=== PATIENT | female | born 1935 | race Caucasian/White ===

== ENCOUNTER 2016-04-16 01:44 | Inpatient (IN) | payer MEDICARE, OTHER ==
[~2016-04-16] VITALS: Ht 162.6 cm; Wt 55.0 kg
[2016-04-16] VITALS (12 sets, daily range): BP systolic 138–186; BP diastolic 63–88; PULSE 70–108; RESP 15–22; TEMP 98.2–101.6; O2SAT 93–98
[~2016-04-16 01:44] MED LIST: ALBU25IPRN INH; BISA10R PR; CYAN1000P IM; DILA2TAB4 PO; DOCU100T9 PO; ERGO50000 PO; GABA300 PO; HALO5 PO; HALO5P IM; KCL10 PO; LEVA250T PO; LORA-474 PO; MAGN400 PO; METO50CR PO; METR-1 PO/NG; NOVOLOGSS SQ; PHEN100S PO; PROC2.5C PR; RISP.5 PO; TRAZ50TA4 PO
[2016-04-16] MEDS ORDERED: SODIUM CHLOR 0.9% 1000 ML INJ 1,000 ML IV ONE (02:00)
--- NOTE | 2016-04-16 02:23 | PD ---
HPI Chief Complaint: GI Complaint Time Seen by Provider: 01:58 Travel History International Travel<30 days: No Contact w/Intl Traveler<30days: No Traveled to known affect area: No History of Present Illness HPI 80-year-old woman who presents to the emergency department referred in from [facility] for altered mental status, possible UTI , coffee ground emesis. Patient is unable to provide any additional history. History Past Medical History Narrative Medical Hypertension Seizures Diabetes Bipolar/schizoaffective disorder/anxiety Anemia ? Acute embolism and thrombosis 12/2014 Menopausal: Yes : 2 Para: 1 Social History Alcohol Use: No Tobacco Use: No Allergies-Medications (Allergen,Severity, Reaction): Coded Allergies: Glipizide (Verified Allergy, Severe, VOMITING, 04/16/16) Lansoprazole (Verified Allergy, Severe, VOMITING, 04/16/16) Percocet (Verified Allergy, Severe, VOMITING, 04/16/16) PERCOCET Pravastatin (Verified Allergy, Severe, VOMITING, 04/16/16) PT HAS THIS LISTED, BUT WAS PRESCRIBED BY HER DRDavid IN OCTOBER -NOT AWARE OF ANY PROBLEM NOW WITH THIS MED Propoxyphene (Verified Allergy, Severe, VOMITING, 04/16/16) DARVOCET Abilify (Verified Adverse Reaction, Severe, 04/16/16) Reported Meds & Prescriptions Reported Meds & Active Scripts Active Reported Tylenol (Acetaminophen) 325 Mg Tab 650 Mg PO Q6H PRN Trazodone HCl 100 Mg Tab 1 Cap PO HS Tessalon Perles (Benzonatate) 100 Mg Cap 100 Mg PO TID PRN Risperidone 0.25 Mg Tab 0.75 Mg PO BID Poly-Iron 150 (Polysaccharide Iron Complex) 150 Mg Cap 150 Mg PO DAILY Phenytoin Liq (Phenytoin) 125 Mg/5 Ml Erika 300 Mg PO HS Phenytoin Liq (Phenytoin) 125 Mg/5 Ml Erika 150 Mg PO Q12HR Novolin R Inj (Insulin Human Regular) 1,000 Unit/10 Ml Vial 2-18 Units SQ ACHS Max dose at bedtime:( )units; sugars less than 70,(0) units; sugars 150-199,(2)unit; sugars 200-249,(4)units; sugars 250-299,(7) units; sugars 300-349,(10)units; sugars greater than 349,(12)units Mineral Oil Enema (Mineral Oil) 1 Enem 1 Applic RECTAL PRN Milk of Magnesia Liq (Magnesium Hydroxide) 400 Mg/5 Ml Susp 15 Ml PO DAILY PRN Metoprolol Tartrate 50 Mg Tab 50 Mg PO DAILY Lorazepam 1 Mg Tab 1 Mg PO Q12HR PRN Lisinopril 2.5 Mg Tab 2.5 Mg PO DAILY Lexapro (Escitalopram Oxalate) 20 Mg Tab 20 Mg PO DAILY Lantus Inj (Insulin Glargine) 100 Unit/Ml Inj 5 Units SQ BID Lactulose Liq (Lactulose) 10 Gm/15 Ml Soln 30 Ml PO DAILY PRN Klonopin (Clonazepam) 1 Mg Tab 1 Mg PO BID Klonopin (Clonazepam) 0.5 Mg Tab 0.5 Mg PO DAILY Guaifenesin 400 Mg Tab 1,200 Mg PO BID Gabapentin 300 Mg Cap 300 Mg PO BID Fentanyl Patch 72 HR (Fentanyl) 25 Mcg/Hr Patch 25 Mcg T-DERMAL Q72H Dulcolax Supp (Bisacodyl) 10 Mg Supp 10 Mg RECTAL DAILY PRN Dilaudid (Hydromorphone HCl) 4 Mg Tab 4 Mg PO Q4H PRN Depakote Sprinkles (Divalproex Sodium) 125 mg Cap 250 Mg PO DAILY Colace (Docusate Sodium) 100 Mg Cap 100 Mg PO BID Benztropine (Benztropine Mesylate) 1 Mg Tab 1 Mg PO BID PRN Baclofen 10 Mg Tab 10 Mg PO BID PRN Albuterol Neb (Albuterol Sulfate) 2.5 Mg/3 Ml Neb 2.5 Mg NEB Q4HR NEB PRN Review of Systems Except as stated in HPI: all other systems reviewed are Neg Physical Exam Narrative GENERAL: 80-year-old woman, pale and ill-appearing SKIN: Warm and dry. HEAD: Atraumatic. Normocephalic. CARDIOVASCULAR: Regular rate and rhythm. No murmur appreciated. RESPIRATORY: No accessory muscle use. Clear to auscultation. Breath sounds equal bilaterally. GASTROINTESTINAL: Abdomen flat and soft. Some grimace to deep palpation. RECTAL: Firm stool in the rectal vault, light brown, guaiac-negative. MUSCULOSKELETAL: No obvious deformities. Decreased muscle bulk. No edema. NEUROLOGICAL: Awake, eyes open but decreased alertness. Not interactive. Will answer some questions such as her name. Will not really follow any commands. PSYCHIATRIC: Unable to assess. Data Data Last Documented VS Vital Signs Date Time Temp Pulse Resp B/P Pulse Ox O2 Delivery O2 Flow Rate FiO2 04/16/16 01:50 101.6 76 20 138/67 94 Orders Chest, Single Ap (04/16/16 ) Complete Blood Count With Diff (04/16/16 02:00) Comprehensive Metabolic Panel (04/16/16 02:00) Prothrombin Time / Inr (Pt) (04/16/16 02:00) Act Partial Throm Time (Ptt) (04/16/16 02:00) Lactic Acid Sepsis Protocol (04/16/16 02:00) Magnesium (Mg) (04/16/16 02:00) Phosphorus (Po4) (04/16/16 02:00) Lipase (04/16/16 02:00) Troponin I (04/16/16 02:00) Urinalysis - C+S If Indicated (04/16/16 02:00) Influenzae A/B Antigen (04/16/16 02:00) Blood Culture (04/16/16 02:00) Blood Glucose (04/16/16 02:00) Ecg Monitoring (04/16/16 02:00) Iv Access Insert/Monitor (04/16/16 02:00) Oximetry (04/16/16 02:00) Oxygen Administration (04/16/16 02:00) Ct Abd/Pel W Iv Contrast(Rout) (04/16/16 02:00) Sodium Chlor 0.9% 1000 Ml Inj (Ns 1000 M (04/16/16 02:00) Urinary Catheter Insert/Apply (04/16/16 02:21) Phenytoin (Dilantin) (04/16/16 02:10) Valproic Acid (Depakene) (04/16/16 02:10) Pantoprazole Inj (Protonix Inj) (04/16/16 03:15) Vancomycin Inj (Vancomycin Inj) (04/16/16 03:15) Piperacil-Tazo 3.375 Gm Premix (Zosyn 3. (04/16/16 03:15) Iohexol 350 Inj (Omnipaque 350 Inj) (04/16/16 03:16) Labs Laboratory Tests Test 04/16/16 04/16/16 02:10 02:30 White Blood Count 13.7 TH/MM3 Red Blood Count 3.30 MIL/MM3 Hemoglobin 10.2 GM/DL Hematocrit 30.1 % Mean Corpuscular Volume 91.1 FL Mean Corpuscular Hemoglobin 31.0 PG Mean Corpuscular Hemoglobin 34.0 % Concent Red Cell Distribution Width 12.7 % Platelet Count 256 TH/MM3 Mean Platelet Volume 8.2 FL Neutrophils (%) (Auto) 91.0 % Lymphocytes (%) (Auto) 3.7 % Monocytes (%) (Auto) 4.7 % Eosinophils (%) (Auto) 0.0 % Basophils (%) (Auto) 0.6 % Neutrophils # (Auto) 12.5 TH/MM3 Lymphocytes # (Auto) 0.5 TH/MM3 Monocytes # (Auto) 0.6 TH/MM3 Eosinophils # (Auto) 0.0 TH/MM3 Basophils # (Auto) 0.1 TH/MM3 CBC Comment DIFF FINAL Differential Comment Prothrombin Time 10.7 SEC Prothromb Time International 1.0 RATIO Ratio Activated Partial 26.6 SEC Thromboplast Time Sodium Level 136 MEQ/L Potassium Level 4.7 MEQ/L Chloride Level 99 MEQ/L Carbon Dioxide Level 27.9 MEQ/L Anion Gap 9 MEQ/L Blood Urea Nitrogen 37 MG/DL Creatinine 0.80 MG/DL Estimat Glomerular Filtration 69 ML/MIN Rate Random Glucose 81 MG/DL Lactic Acid Level 0.9 mmol/L Calcium Level 8.4 MG/DL Phosphorus Level 2.8 MG/DL Magnesium Level 2.1 MG/DL Total Bilirubin 0.3 MG/DL Aspartate Amino Transf 21 U/L (AST/SGOT) Alanine Aminotransferase 13 U/L (ALT/SGPT) Alkaline Phosphatase 95 U/L Troponin I LESS THAN 0.02 NG/ML Total Protein 6.4 GM/DL Albumin 2.7 GM/DL Lipase 30 U/L Phenytoin (Dilantin) Level 4.9 MCG/ML Valproic Acid (Depakene) Level 14 MCG/ML Urine Color YELLOW Urine Turbidity CLEAR Urine pH 6.5 Urine Specific [place] 1.021 Urine Protein NEG mg/dL Urine Glucose (UA) NEG mg/dL Urine Ketones NEG mg/dL Urine Occult Blood NEG Urine Nitrite NEG Urine Bilirubin NEG Urine Urobilinogen LESS THAN 2.0 MG/DL Urine Leukocyte Esterase NEG Urine RBC 1 /hpf Urine Squamous Epithelial <1 /hpf Cells Urine Hyaline Casts 1 /lpf Urine Mucus FEW /lpf Microscopic Urinalysis Comment CATH-CULT NOT IND MDM Medical Decision Making Medical Screen Exam Complete: Yes Emergency Medical Condition: Yes Interpretation(s) LABS: CBC remarkable for mild leukocytosis, mild anemia. CMP is unremarkable Troponin negative Lipase normal Lactate negative Coags unremarkable UA unremarkable Phenytoin 4.[address] abdomen and pelvis: Tidal hernia. Fecal impaction. No perceptible mass lesion. Small left pleural effusion. Chest x-ray: Patchy mild airspace disease on the left. Differential Diagnosis Obstruction, hematemesis, infection, adverse medication effect, other Narrative Course Medical decision making INITIAL: 80-year-old woman, presents emergency Department with altered mental status, delirium, dark black emesis, and fever. She appears ill, likely septic. Dark emesis but guaiac negative stools. Possible bleed. Does not appear to be on any blood thinners. She has some grimace with deep palpation in her belly, with fever and vomiting and no other source, concern for abdominal sepsis. Will check chest x-ray, CT abdomen and pelvis, labs, IV fluids, reassess. FINAL: Patient with evidence of hematemesis. She also fecal impaction. Unclear if this is a source or vomiting or not. She was disimpacted at the bedside. She was started on a PPI. She was given empiric coverage for sepsis given her fever, tachypnea, leukocytosis. Diagnosis Primary Impression: Sepsis Qualified Code: A41.9 - Sepsis, due to unspecified organism Additional Impressions: Fecal impaction GI bleed Qualified Code: K92.2 - Gastrointestinal hemorrhage, unspecified gastrointestinal hemorrhage type Admitting Information Admitting Physician Requests: Admit Zeeshan Yao MD Apr 16, 2016 02:23
--- NOTE | 2016-04-16 02:30 | RADRPT ---
EXAM DATE/TIME: 04/16/2016 00:13 [facility] COMPARISON: CHEST SINGLE AP, November 20, 2014, 6:10. INDICATIONS : Pt having coffee ground emesis x 1 day. MEDICAL HISTORY : Diabetes mellitus type II. Dementia SURGICAL HISTORY : None. ENCOUNTER: Initial ACUITY: 1 day PAIN SCORE: Non-responsive. LOCATION: Bilateral chest FINDINGS: Patchy air space opacities are seen in the left mid and lower lung. Right lung appears reasonably moises ar. No large effusion demonstrated. No pneumothorax. Heart size stable, upper limits of normal. CONCLUSION: Patchy mild airspace disease on the left. Mazin Arroyo MD on April 16, 2016 at 2:28 Board Certified Radiologist. This report was verified electronically.
[2016-04-16 02:37] LABS: AUTOMATED NEUTROPHIL # 12.5 TH/MM3 (1.8-7.7); BASOPHIL # 0.1 TH/MM3 (0-0.2); BASOPHIL % 0.6 % (0.0-2.0); HEMATOCRIT 30.1 % (35.0-46.0); HEMO FLAGS DIFF FINAL; LYMPH % 3.7 % (9.0-44.0); LYMPHOCYTE # 0.5 TH/MM3 (1.0-4.8); MEAN CELL VOLUME 91.1 FL (80.0-100.0); MONO % 4.7 % (0.0-8.0); PLATELET COUNT 256 TH/MM3 (150-450); RED CELL DISTRIBUTION WIDTH 12.7 % (11.6-17.2); WHITE BLOOD COUNT 13.7 TH/MM3 (4.0-11.0)
[2016-04-16 02:47] LABS: APTT (PATIENT) 26.6 SEC (24.3-30.1); PROTHROMBIN TIME - PATIENT 10.7 SEC (9.8-11.6)
[2016-04-16 02:49] LABS: BLOOD, URINE NEG (NEG); GLUCOSE,URINE NEG (NEG); HYALINE CAST, URINE 1 /lpf (RARE); KETONE, URINE NEG (NEG); MUCUS URINE FEW /lpf (OCC); NITRITE,URINE NEG (NEG); PH, URINE 6.5 (5.0-8.5); SQUAMOUS EPITHELIAL CELL URINE <1 /hpf (0-5); URINE COLOR YELLOW (YELLW/STRAW)
[2016-04-16 02:51] LABS: COMMENT (UR) CATH-CULT NOT IND; CULTURE IF INDICATED CATH CULTURE NOT IND
[2016-04-16 03:00] LABS: ALT (GPT) 13 U/L (10-53); ANION GAP 9 MEQ/L (5-15); AST (GOT) 21 U/L (15-37); BICARBONATE 27.9 MEQ/L (21.0-32.0); BLOOD UREA NITROGEN 37 MG/DL (7-18); CHLORIDE 99 MEQ/L (98-107); GLOMERULAR FILTRATION RATE 69 ML/MIN (>89); MAGNESIUM 2.1 MG/DL (1.5-2.5); POTASSIUM 4.7 MEQ/L (3.5-5.1); SODIUM (NA) 136 MEQ/L (136-145)
[2016-04-16 03:02] LABS: ALKALINE PHOSPHATASE 95 U/L (45-117); TOTAL BILIRUBIN ADULT 0.3 MG/DL (0.2-1.0)
[2016-04-16] MEDS ORDERED: BENZ100 PO (03:09)
[2016-04-16] MEDS ORDERED: ALBU0.08 NEB (03:09)
[2016-04-16] MEDS ORDERED: TYLE325T PO (03:09)
[2016-04-16] MEDS ORDERED: DULC10SU3 RECTAL (03:09)
[2016-04-16] MEDS ORDERED: GABA300C5 PO (03:09)
[2016-04-16] MEDS ORDERED: DILA4TAB2 PO (03:09)
[2016-04-16] MEDS ORDERED: CLON1 PO (03:09)
[2016-04-16] MEDS ORDERED: LEXA20TA PO (03:09)
[2016-04-16] MEDS ORDERED: NU-IRON PO (03:09)
[2016-04-16] MEDS ORDERED: DIVA125C PO (03:09)
[2016-04-16] MEDS ORDERED: LORA1TAB12 PO (03:09)
[2016-04-16] MEDS ORDERED: TRAZ100T5 PO (03:09)
[2016-04-16] MEDS ORDERED: NOVORP2 SQ (03:09)
[2016-04-16] MEDS ORDERED: MILKSUS PO (03:09)
[2016-04-16] MEDS ORDERED: METO50TA PO (03:09)
[2016-04-16] MEDS ORDERED: BACL10TA PO (03:09)
[2016-04-16] MEDS ORDERED: MINE1ENE RECTAL (03:09)
[2016-04-16] MEDS ORDERED: LANTUS2P SQ (03:09)
[2016-04-16] MEDS ORDERED: COLA100C3 PO (03:09)
[2016-04-16] MEDS ORDERED: GUAI400T8 PO (03:09)
[2016-04-16] MEDS ORDERED: FENT25DI T-DERMAL (03:09)
[2016-04-16] MEDS ORDERED: LISI2.5T3 PO (03:09)
[2016-04-16] MEDS ORDERED: CLON.5 PO (03:09)
[2016-04-16] MEDS ORDERED: LACT10SO PO (03:09)
[2016-04-16] MEDS ORDERED: BENZ1TAB PO (03:09)
[2016-04-16] MEDS ORDERED: RISP0.252 PO (03:09)
[2016-04-16] MEDS ORDERED: PHEN125S PO ×2 (03:09)
[2016-04-16] MEDS ORDERED: VANCOMYCIN INJ 1,000 MG in SODIUM CHLOR 0.9% 250 ML INJ 250 ML IV ONE (03:15)
[2016-04-16] MEDS ORDERED: PIPERACIL-TAZO 3.375 GM PREMIX 50 ML IV ONE (03:15)
[2016-04-16] MEDS ORDERED: PANTOPRAZOLE SODIUM 40 MG VIAL IV PUSH ONE (03:15)
[2016-04-16] MEDS ORDERED: IOHEXOL 350 MG/ML 10 ML VIAL (for RAD DIAG) IV ONE (03:16)
--- NOTE | 2016-04-16 03:43 | RADRPT ---
EXAM DATE/TIME: 04/16/2016 03:14 [facility] COMPARISON: CT ABDOMEN & PELVIS W CONTRAST, January 19, 2013, 20:34. INDICATIONS : Abdominal pain with coffee ground emesis. IV CONTRAST: 90 cc Omnipaque 350 (iohexol) IV ORAL CONTRAST: No oral contrast ingested. RADIATION DOSE: 5.17 CTDIvol (mGy) MEDICAL HISTORY : Hypercholesterolemia. Hypertension. Hernia, hiatal.Diabetes. SURGICAL HISTORY : Hysterectomy. ENCOUNTER: Initial ACUITY: 1 day PAIN SCALE: Non-responsive LOCATION: abdomen TECHNIQUE: Volumetric scanning of the abdomen and pelvis was performed. Using automated exposure control and ad justment of the mA and/or kV according to patient size, radiation dose was kept as low as reasonably achievable to obtain optimal diagnostic quality images. FINDINGS: There is a large hiatal hernia. Extremely large amount of stool seen in a distended rectum. The rectum measures up to 11.6 cm in diam eter. No mass or lymphadenopathy demonstrated. No acute abnormality seen of the liver, spleen, pancreas, ad renal glands or kidneys. There is chronic fatty atrophy of the pancreas. Scattered bilateral renal cy sts are again noted up to 2 cm in size. Tortuous and atherosclerotic abdominal aorta and iliac arteries. No aneurysm. Tiny pleural effusion seen of the visualized left lung base. CONCLUSION: 1. Large hiatal hernia. 2. Fecal impaction in the rectum. 3. No perceptible mass lesion. 4. Small left pleural effusion. 5. Chronic, benign-appearing bilateral renal cysts. Mazin Arroyo MD on April 16, 2016 at 3:37 Board Certified Radiologist. This report was verified electronically.
[2016-04-16] MEDS ORDERED: MAGNESIUM CITRATE SOLN 300 ML BTL PO ONE (04:15)
[2016-04-16] MEDS ORDERED: METHYLNALTREXONE BROMIDE 12 MG/0.6 ML VIAL SQ ONE (04:15)
[2016-04-16] MEDS ORDERED: GLYCERIN ADULT 2 GM SUPP RECTAL ONE (04:15)
[2016-04-16] MEDS ORDERED: LACTULOSE SYRUP 20 GM/30 ML CUP PO PRN (05:30)
[2016-04-16] MEDS ORDERED: BISACODYL 10 MG SUPP RECTAL PRN (05:30)
[2016-04-16] MEDS ORDERED: GLUCAGON 1 MG/ML VIAL OTHER PRN (05:30)
[2016-04-16] MEDS ORDERED: BENZTROPINE MESYLATE 1 MG TAB PO PRN (05:30)
[2016-04-16] MEDS ORDERED: PIPERACIL-TAZO 3.375 GM PREMIX 50 ML IV SCH (05:30)
[2016-04-16] MEDS ORDERED: SODIUM CHLORIDE 0.9% FLUSH 5 ML FLUSH FLUSH PRN (05:30)
[2016-04-16] MEDS ORDERED: HYDROmorphone HCL 4 MG TAB PO PRN (05:30)
[2016-04-16] MEDS ORDERED: DEXTROSE 50% IN WATER 50 ML VIAL(D50) IV PUSH PRN (05:30)
[2016-04-16] MEDS ORDERED: ONDANSETRON HCL 4 MG/2 ML VIAL IVP PRN (05:30)
[2016-04-16] MEDS ORDERED: Vancomycin Consult Pharmacy 1 EA XX SCH (05:30)
[2016-04-16] MEDS ORDERED: BENZONATATE 100 MG CAP PO PRN (05:30)
[2016-04-16] MEDS ORDERED: MAGNESIUM HYDROXIDE SUSP 30 ML CUP PO PRN ×2 (05:30)
[2016-04-16] MEDS ORDERED: RESP: ALBUTEROL 2.5 MG/3 ML NEB (PRN) NEB (05:30)
[2016-04-16] MEDS ORDERED: BACLOFEN 10 MG TAB PO PRN (05:30)
[2016-04-16] MEDS ORDERED: BISACODYL 10 MG SUPP PR PRN (05:30)
[2016-04-16] MEDS ORDERED: ACETAMINOPHEN 325 MG TAB PO PRN (05:30)
[2016-04-16] MEDS ORDERED: NALOXONE HCL 0.4 MG/ML AMP IV PRN (05:30)
[2016-04-16] MEDS: PHENYTOIN SUSP 100 MG/4 ML CUP PO SCH ×3 (06:00→22:19)
[2016-04-16] MEDS: fentaNYL 25 MCG/HR PATCH T-DERMAL SCH (06:33)
[2016-04-16] MEDS: SODIUM CHLOR 0.9% 1000 ML INJ 1,000 ML IV SCH ×2 (06:35→10:39)
[2016-04-16] MEDS: INSULIN ASPART SUPPLEMENTAL SCALE SQ SCH ×4 (07:00→22:18)
[2016-04-16] MEDS: PIPERACIL-TAZO 3.375 GM PREMIX 50 ML IV SCH ×3 (08:58→22:32)
[2016-04-16] MEDS: SODIUM CHLORIDE 0.9% FLUSH 5 ML FLUSH FLUSH SCH ×2 (09:00→22:20)
[2016-04-16] MEDS ORDERED: clonazePAM 0.5 MG TAB PO SCH (09:00)
[2016-04-16] MEDS ORDERED: METOPROLOL TARTRATE 50 MG TAB PO SCH (09:00)
[2016-04-16] MEDS ORDERED: PHENYTOIN SUSP 100 MG/4 ML CUP PO SCH (09:00)
[2016-04-16] MEDS: clonazePAM 1 MG TAB PO SCH ×2 (09:02→22:19)
[2016-04-16] MEDS: LISINOPRIL 5 MG TAB PO SCH (09:05)
[2016-04-16] MEDS: DOCUSATE SODIUM 100 MG CAP PO SCH ×2 (09:07→22:18)
--- NOTE | 2016-04-16 10:05 | MH ---
DATE OF ADMISSION 04/16/2016 DATE OF [address] Alex Franz PRESENTING COMPLAINT The patient was brought to the ER from [facility] because of altered mental status for coffee-ground emesis. HISTORY OF PRESENT ILLNESS The patient is an 80-year female with a significant past medical history of dementia. Unable to get any good information from the patient. The patient is alert and oriented times one at present. The patient was brought from [facility] for altered mental status with coffee-ground emesis. As per old records, the patient has dementia and se has a psychiatric history as well. At present, the patient has no complaint. She denies any headache. She has only nausea. Denies any vomiting. On questioning, she says that she has slight abdominal discomfort. There are no other associated symptoms. There are no other symptoms. Discussed with RN at the bedside in the ER as well. The patient has been disimpacted in the ER. PAST MEDICAL HISTORY Significant for: 1. Anxiety 2. Bipolar disorder 3. Arthritis 4. Gastroesophageal reflux disease 5. Hyperlipidemia 6. Depression 7. Diabetes 8. Hypertension 9. Seizure 10. History of anemia 11. Dementia 12. GERD 13. Schizoaffective disorder. PAST SURGICAL HISTORY 1. As per records history of appendectomy. 2. Eyes surgery 3. Hysterectomy 4. Back surgery 5. Tonsillectomy 6. Also has an intravenous shunt stent 7. Back and heart surgery MEDICATIONS Reviewed, please see MAR. ALLERGIES The patient has allergy to ABILIFY, GLIPIZIDE, LANSOPRAZOLE, PERCOCET AND PROPOXYPHENE. FAMILY HISTORY As per record, heart disease. REVIEW OF SYSTEMS As described above, essentially negative for 10 systems. Discussed with the patient, the patient is demented as well and with altered mental status. SOCIAL HISTORY The patient lives in a nursing/rehab facility. She does not smoke or drink. Does not do any substance abuse. PHYSICAL EXAMINATION The patient is alert and oriented x1, pleasant, following commands, lying on bed without any apparent distress at present. VITAL SIGNS: Show the patient is afebrile, pulse is 78, on monitor respiratory is 16, blood pressure 157/67, pulse 97, pulse ox of 97% on room air. HEENT: Head is normocephalic. Eyes, negative conjunctival icterus. Mouth slightly dry tongue and mouth. NECK: Supple. No increased JVD. Central trachea. RESPIRATORY: Chest is clear to auscultation. CARDIOVASCULAR: S1 and S2 audible. Unable to hear any S3 gallop. GI: Abdomen is soft, very minimally tender in the lower abdomen. No rebound, no guarding noted. No organomegaly. Positive bowel sounds. The patient's stomach is not distended. SKIN: Warm and dry. EXTREMITIES: No cyanosis or pedal edema appreciated. GAMING DIRECTOR: Alert, oriented to x1, normal facial features, normal speech. There is a decreased muscle mass. PSYCH: Appropriate mood and affect at present. INVESTIGATIONS Chest x-ray Shows the patient has patchy mild airspace disease on the left. Abdominal pelvic ultrasound shows slight hiatal hernia. Fecal impaction in the rectum. No perceptible mass lesion. Small left pleural effusion. Chronic benign-appearing bilateral renal cysts. Labs were done which shows WBC 13.7, hemoglobin 10.7, hematocrit 30.1, platelet count is 256. BUN 37, GFR 69, troponin less than 0.02, albumin 2.7, lipase 30, lactic acid 0.9, PT-INR and PTT within normal limits. Phenytoin level 4.9, valproic acid 14. The patient's urine shows urine mucus few, culture not indicated. Negative influenza type A and B. Negative antigen. Blood culture done. ASSESSMENT 1. High-grade fever on admission with leukocytosis likely sepsis, likely early sepsis 2. Obstipation 3. Hematemesis in nursing facility. 4. Altered mental status metabolic encephalopathy/dementia. 5. Schizoaffective disorder with depression and anxiety. 6. Hypertension 7. Diabetes 8. History of anemia. 9. CAD history with a stent and heart surgery history in the past. 10. History of back surgery. 11. As per records history of DVT. PLAN 1. We will admit the patient to the floor. 2. IV hydration. 3. Monitor H&H. 4. Empiric antibiotics. 5. Follow cultures. 6. Disimpaction done in the ER, advised RN to do more disimpaction if needed. 7. Plan for GI consult. 8. p.r.n. blood transfusion. 9. Monitor sugar with sliding scale insulin coverage. 10. Monitor blood pressure. 11. Labs for tomorrow. 12. Continue some of home medication as indicated. 13. Keep her on a clear liquids. 14. Condition discussed with RN. Tried to explain to the patient. Condition is guarded, prognosis guarded. Further recommendation to follow as per patient progress. alf records show the patient is DNR. We will keep her DNR. Alex Franz MD JP/ASIF /9:03 AM /9:26 AM PT SEEN AND EXAMINED ON DAY ADMISSION ABOVE FACE TO FACE TIME SPENT WITH PT CHART WAS REVIEWED. INCLUDING LABS MEDS AND RAD DATA NOTES WERE REVEIWED PLAN OF CARE WAS DW FURNITURE MOVER ABOVE COND WAS GUARDED MTDD
[2016-04-16] MEDS: ESCITALOPRAM OXALATE 20 MG TAB PO SCH (10:23)
[2016-04-16] MEDS: risperiDONE 0.25 MG TAB PO SCH ×2 (10:24→22:32)
[2016-04-16] MEDS: DIVALPROEX SODIUM SPRINKLES 125 MG CAP PO SCH (10:25)
[2016-04-16] MEDS: guaiFENesin E.R. 600 MG TAB PO SCH ×2 (10:27→22:18)
[2016-04-16] MEDS: POLYSACCHARIDE IRON COMPLEX 150 MG CAP PO SCH (10:27)
--- NOTE | 2016-04-16 10:31 | PD.CONS ---
HPI History of Present Illness This is a 80 year old female with history of dementia, who is not able to provide any history who was sent from [facility] for AMS and reported Coffee ground emesis. Patient is alert and oriented to self. Reports slight abdomen discomfort. No signs of bleeding here in the ED according to nurse, she had a small amount of emesis and that was brown, she was disimpacted and no blood in the stool noted. Hgb seems to be baseline around 10. She has leukocytosis of 13.7. CT showed Large hiatal hernia. 2. Fecal impaction in the rectum. 3. No perceptible mass lesion. (Jarvis Davalos) PFSH Past Medical History Per EMR Anxiety Bipolar disorder Arthritis GERD Depression DM HTN Dementia Past Surgical History Per EMR Appendectomy eye surgery back surgery hysterectomy (Jarvis Davalos) Coded Allergies: Glipizide (Verified Allergy, Severe, VOMITING, 04/16/16) Lansoprazole (Verified Allergy, Severe, VOMITING, 04/16/16) Percocet (Verified Allergy, Severe, VOMITING, 04/16/16) PERCOCET Pravastatin (Verified Allergy, Severe, VOMITING, 04/16/16) PT HAS THIS LISTED, BUT WAS PRESCRIBED BY HER DR. IN OCTOBER -NOT AWARE OF ANY PROBLEM NOW WITH THIS MED Propoxyphene (Verified Allergy, Severe, VOMITING, 04/16/16) DARVOCET Abilify (Verified Adverse Reaction, Severe, 04/16/16) Medications Current Medications Medications (Trade) Dose Ordered Sig/Luna Route Start Time Stop Time Status Last Admin (NS 1000 ml Inj) 1,000 ml @ 100 mls/hr Q10H IV 04/16/16 05:18 04/16/16 06:35 (NS Flush) 2 ml UNSCH PRN FLUSH 04/16/16 05:30 (NS Flush) 2 ml BID FLUSH 04/16/16 09:00 (Tylenol) 650 mg Q4H PRN PO 04/16/16 05:30 (Zofran Inj) 4 mg Q6H PRN IVP 04/16/16 05:30 (Dulcolax Supp) 10 mg DAILY PRN MI 04/16/16 05:30 (Colace) 100 mg Q12H PO 04/16/16 09:00 04/16/16 09:07 Naloxone HCl 0.4 mg 0.4 mg UNSCH PRN IV 04/16/16 05:30 (Vancomycin Consult Pharmacy) 0 ml @ 0 mls/hr UNSCH XX 04/16/16 05:30 (Relistor Inj) 12 mg DAILY SQ 04/16/16 09:00 (Lioresal) 10 mg BID PRN PO 04/16/16 05:30 (Tessalon) 100 mg TID PRN PO 04/16/16 05:30 (Cogentin) 1 mg BID PRN PO 04/16/16 05:30 (Dulcolax Supp) 10 mg DAILY PRN RECTAL 04/16/16 05:30 (KlonoPIN) 1 mg BID PO 04/16/16 09:00 04/16/16 09:02 (Depakote Sprinkles) 250 mg DAILY PO 04/16/16 09:00 (Lexapro) 20 mg DAILY PO 04/16/16 09:00 (Duragesic 25 Mcg Patch.72 Hr) 1 patch Q72H T-DERMAL 04/16/16 06:00 04/16/16 06:33 (Neurontin) 300 mg BID PO 04/16/16 09:00 (Dilaudid) 2 mg Q4H PRN PO 04/16/16 05:30 (Lactulose Liq) 30 ml DAILY PRN PO 04/16/16 05:30 (Prinivil) 2.5 mg DAILY PO 04/16/16 09:00 04/16/16 09:05 (Ativan) 1 mg Q12HR PRN PO 04/16/16 05:30 (Milk Of Magnesia Liq) 15 ml DAILY PRN PO 04/16/16 05:30 (Lopressor) 50 mg DAILY PO 04/16/16 09:00 04/16/16 09:04 (Dilantin Liq) 300 mg HS PO 04/16/16 21:00 (Nu-Iron) 150 mg DAILY PO 04/16/16 09:00 (risperDAL) 0.75 mg BID PO 04/16/16 09:00 (Mucinex Er) 1,200 mg BID PO 04/16/16 09:00 (Desyrel) 100 mg HS PO 04/16/16 21:00 (D50w (Vial) Inj) 25 ml UNSCH PRN IV PUSH 04/16/16 05:30 Glucagon 1 mg 1 mg UNSCH PRN OTHER 04/16/16 05:30 (Zosyn 3.375 Gm Premix) 50 ml @ 100 mls/hr Q6H IV 04/16/16 09:00 04/16/16 08:58 (Dilantin Liq) 150 mg DAILY@06,12 PO 04/16/16 06:00 04/16/16 06:00 Clonazepam 0.5 mg 0.5 mg DAILY@14 PO 04/16/16 14:00 (Vancomycin Inj/ NS 250 ml Inj) 257.5 ml @ 250 mls/hr Q24H IV 04/17/16 04:00 Miscellaneous Information SPECIFIC LAB TO BE SPENCER... ONCE ONCE XX 04/19/16 03:45 04/19/16 03:46 (Protonix Inj) 40 mg BID IV 04/16/16 21:00 Family History Non contributory Social History Not able to obtain (Jarvis Davalos) Review of Systems Gastrointestinal: COMPLAINS OF: Abdominal pain ROS Not able to obtain, patient with dementia, she was sent here for coffee ground emesis, and AMS (Jarvis Davalos) GI Exam Vitals I&O Vital Signs Date Time Temp Pulse Resp B/P Pulse Ox O2 Delivery O2 Flow Rate FiO2 04/16/16 07:00 98.6 78 16 157/67 97 Room Air 04/16/16 04:04 70 16 141/63 96 Room Air 04/16/16 01:50 101.6 76 20 138/67 94 I/O 04/15/16 04/15/16 04/15/16 04/16/16 04/16/16 04/16/16 07:00 15:00 23:00 07:00 15:00 23:00 Output Total 700 ml Balance -700 ml Output Urine Total 700 ml # Voids 0 Imaging Last Impressions Abdomen/Pelvis CT 04/16/16 0200 Signed Impressions: Service Date/Time: Saturday, April 16, 2016 03:14 - CONCLUSION: 1. Large hiatal hernia. 2. Fecal impaction in the rectum. 3. No perceptible mass lesion. 4. Small left pleural effusion. 5. Chronic, benign-appearing bilateral renal cysts. Mazin Arroyo MD Chest X-Ray 04/16/16 0000 Signed Impressions: Service Date/Time: Saturday, April 16, 2016 00:13 - CONCLUSION: Patchy mild airspace disease on the left. Mazin Arroyo MD Laboratory Test 04/16/16 04/16/16 02:10 02:30 White Blood Count 13.7 TH/MM3 Red Blood Count 3.30 MIL/MM3 Hemoglobin 10.2 GM/DL Hematocrit 30.1 % Mean Corpuscular Volume 91.1 FL Mean Corpuscular Hemoglobin 31.0 PG Mean Corpuscular Hemoglobin 34.0 % Concent Red Cell Distribution Width 12.7 % Platelet Count 256 TH/MM3 Mean Platelet Volume 8.2 FL Neutrophils (%) (Auto) 91.0 % Lymphocytes (%) (Auto) 3.7 % Monocytes (%) (Auto) 4.7 % Eosinophils (%) (Auto) 0.0 % Basophils (%) (Auto) 0.6 % Neutrophils # (Auto) 12.5 TH/MM3 Lymphocytes # (Auto) 0.5 TH/MM3 Monocytes # (Auto) 0.6 TH/MM3 Eosinophils # (Auto) 0.0 TH/MM3 Basophils # (Auto) 0.1 TH/MM3 CBC Comment DIFF FINAL Differential Comment Prothrombin Time 10.7 SEC Prothromb Time International 1.0 RATIO Ratio Activated Partial 26.6 SEC Thromboplast Time Sodium Level 136 MEQ/L Potassium Level 4.7 MEQ/L Chloride Level 99 MEQ/L Carbon Dioxide Level 27.9 MEQ/L Anion Gap 9 MEQ/L Blood Urea Nitrogen 37 MG/DL Creatinine 0.80 MG/DL Estimat Glomerular Filtration 69 ML/MIN Rate Random Glucose 81 MG/DL Lactic Acid Level 0.9 mmol/L Calcium Level 8.4 MG/DL Phosphorus Level 2.8 MG/DL Magnesium Level 2.1 MG/DL Total Bilirubin 0.3 MG/DL Aspartate Amino Transf 21 U/L (AST/SGOT) Alanine Aminotransferase 13 U/L (ALT/SGPT) Alkaline Phosphatase 95 U/L Troponin I LESS THAN 0.02 NG/ML Total Protein 6.4 GM/DL Albumin 2.7 GM/DL Lipase 30 U/L Phenytoin (Dilantin) Level 4.9 MCG/ML Valproic Acid (Depakene) Level 14 MCG/ML Urine Color YELLOW Urine Turbidity CLEAR Urine pH 6.5 Urine Specific [place] 1.021 Urine Protein NEG mg/dL Urine Glucose (UA) NEG mg/dL Urine Ketones NEG mg/dL Urine Occult Blood NEG Urine Nitrite NEG Urine Bilirubin NEG Urine Urobilinogen LESS THAN 2.0 MG/DL Urine Leukocyte Esterase NEG Urine RBC 1 /hpf Urine Squamous Epithelial <1 /hpf Cells Urine Hyaline Casts 1 /lpf Urine Mucus FEW /lpf Microscopic Urinalysis Comment CATH-CULT NOT IND Date/Time Procedure Status Source Growth 04/16/16 02:35 Influenza Types A,B Antigen (FRANK) - Final Complete Nasal Washing NEGATIVE FOR FLU A AND B ANTIGEN.... 04/16/16 02:10 Aerobic Blood Culture Received Blood Peripheral Pending 04/16/16 02:10 Anaerobic Blood Culture Received Blood Peripheral Pending Physical Examination HEENT: normocephalic; atraumatic; no jaundice. Throat is clear. NECK: Neck is supple, no JVD, no lymphadenopathy. CHEST: diminished CARDIAC: Regular rate and rhythm with no murmur gallop or rubs. ABDOMEN: Soft, nondistended,diffused tenderness; no hepatosplenomegaly; bowel sounds are present in all four quadrants. EXTREMITIES: No clubbing, cyanosis, or edema. SKIN: ecchymotic BACK ORDER CLERK: alert and oriented to self (Jarvis Davalos) Assessment and Plan Plan - Coffee ground emesis- with history of dementia, who is not able to provide any history who was sent from [facility] for AMS and reported Coffee ground emesis. Patient is alert and oriented to self. Reports slight abdomen discomfort. No signs of bleeding here in the ED according to nurse, she had a small amount of emesis and that was brown, she was disimpacted and no blood in the stool noted. Hgb seems to be baseline around 10. She has leukocytosis of 13.7. CT showed Large hiatal hernia. 2. Fecal impaction in the rectum. 3. No perceptible mass lesion. - Anemia- hgb seems to be base line for patient, no signs of active bleeding so far. - Leukocytosis- WBC 13.7, afebrile, abx - Obstipation- CT as above, s/p disimpaction - Dementia, HTN per attending Plan: - Clear liquids - Cont. PPI - Will monitor symptoms and hh over the weekend, if there is indication, we can perform EGD on Tuesday or sooner for active bleed this was discussed with sister Ksenia Patino ) and she is agreeing with plan - Transfuse as needed - Notify GI with active bleed - Cont. bowel regimen - Patient seen and examined by Dr. Sellers and myself and this note is written on his behalf. (Jarvis Davalos) Physician Comments Seen and examined with [employer], No active bleeding. Elderly demented patient. Monitor labs closely, GI intervention if active bleeding. Iv protonix. Will follow, Thank you (Arnel Sellers MD) Jarvis Davalos Apr 16, 2016 10:31 Arnel Sellers MD Apr 16, 2016 13:32
[2016-04-16] MEDS: METHYLNALTREXONE BROMIDE 12 MG/0.6 ML VIAL SQ SCH (10:33)
[2016-04-16] MEDS: GABAPENTIN 300 MG CAP PO SCH ×2 (10:38→22:18)
[2016-04-16 10:48] LABS: HEMATOCRIT 25.2 % (35.0-46.0); REVIEW FLAG FINAL
[2016-04-16] MEDS: clonazePAM 0.5 MG TAB PO SCH (14:19)
[2016-04-16] MEDS: HYDROmorphone HCL 2 MG TAB PO PRN (20:20)
[2016-04-16 20:42] LABS: REVIEW FLAG FINAL
[2016-04-16] MEDS: traZODone HCL 100 MG TAB PO SCH (22:18)
[2016-04-16] MEDS: METOPROLOL TARTRATE 50 MG TAB PO SCH (22:19)
[2016-04-16] MEDS: PANTOPRAZOLE SODIUM 40 MG VIAL IV SCH (22:19)
[2016-04-17] VITALS (10 sets, daily range): BP systolic 109–128; BP diastolic 40–58; PULSE 54–64; RESP 12–20; TEMP 97.9–99.3; O2SAT 97–100
[2016-04-17] MEDS: HYDROmorphone HCL 2 MG TAB PO PRN (00:38)
[2016-04-17 03:22] LABS: BASOPHIL % 0.6 % (0.0-2.0); EOSINOPHIL % 0.1 % (0.0-4.0); HEMATOCRIT 23.7 % (35.0-46.0); HEMO FLAGS DIFF FINAL; LYMPH % 13.4 % (9.0-44.0); MEAN CORPUSCULAR HEMOGLOBIN 31.7 PG (27.0-34.0); MEAN CORPUSCULAR HGB CONC 34.9 % (32.0-36.0); NEUT % 77.9 % (16.0-70.0); PLATELET COUNT 235 TH/MM3 (150-450); RED CELL DISTRIBUTION WIDTH 12.9 % (11.6-17.2); WHITE BLOOD COUNT 7.7 TH/MM3 (4.0-11.0)
[2016-04-17 03:42] LABS: ANION GAP 6 MEQ/L (5-15); AST (GOT) 16 U/L (15-37); BICARBONATE 26.7 MEQ/L (21.0-32.0); BLOOD UREA NITROGEN 29 MG/DL (7-18); CHLORIDE 104 MEQ/L (98-107); GLOMERULAR FILTRATION RATE 62 ML/MIN (>89); POTASSIUM 4.6 MEQ/L (3.5-5.1); SODIUM (NA) 137 MEQ/L (136-145)
[2016-04-17 03:45] LABS: ALKALINE PHOSPHATASE 74 U/L (45-117); ALT (GPT) 14 U/L (10-53); TOTAL BILIRUBIN ADULT 0.5 MG/DL (0.2-1.0)
[2016-04-17] MEDS: SODIUM CHLOR 0.9% 1000 ML INJ 1,000 ML IV SCH ×3 (04:28→20:00)
[2016-04-17] MEDS: PIPERACIL-TAZO 3.375 GM PREMIX 50 ML IV SCH ×4 (04:28→22:24)
[2016-04-17] MEDS: VANCOMYCIN INJ 750 MG in SODIUM CHLOR 0.9% 250 ML INJ 250 ML IV SCH (05:14)
[2016-04-17] MEDS: PHENYTOIN SUSP 100 MG/4 ML CUP PO SCH ×3 (05:15→19:58)
[2016-04-17] MEDS: INSULIN ASPART SUPPLEMENTAL SCALE SQ SCH ×4 (05:17→22:29)
[2016-04-17] MEDS: METHYLNALTREXONE BROMIDE 12 MG/0.6 ML VIAL SQ SCH (08:40)
[2016-04-17] MEDS: clonazePAM 1 MG TAB PO SCH ×2 (08:42→20:00)
[2016-04-17] MEDS: risperiDONE 0.25 MG TAB PO SCH ×2 (08:42→20:00)
[2016-04-17] MEDS: POLYSACCHARIDE IRON COMPLEX 150 MG CAP PO SCH (08:42)
[2016-04-17] MEDS: METOPROLOL TARTRATE 50 MG TAB PO SCH ×3 (08:42→19:59)
[2016-04-17] MEDS: GABAPENTIN 300 MG CAP PO SCH ×2 (08:43→20:00)
[2016-04-17] MEDS: DOCUSATE SODIUM 100 MG CAP PO SCH ×2 (08:43→20:00)
[2016-04-17] MEDS: ESCITALOPRAM OXALATE 20 MG TAB PO SCH (08:43)
[2016-04-17] MEDS: LISINOPRIL 5 MG TAB PO SCH (08:43)
[2016-04-17] MEDS: guaiFENesin E.R. 600 MG TAB PO SCH ×2 (08:43→20:00)
[2016-04-17] MEDS: DIVALPROEX SODIUM SPRINKLES 125 MG CAP PO SCH (08:45)
[2016-04-17] MEDS: SODIUM CHLORIDE 0.9% FLUSH 5 ML FLUSH FLUSH SCH ×2 (08:45→20:00)
[2016-04-17] MEDS: PANTOPRAZOLE SODIUM 40 MG VIAL IV SCH (08:46)
--- NOTE | 2016-04-17 09:58 | HHI.PR ---
Subjective Remarks Patient is confused alert and oriented 1 Pleasant Offering no complaint Lying on bed without any apparent distress Review of system for 10 point system otherwise unremarkable Objective Objective Results - Vital Signs Date Time Temp Pulse Resp B/P Pulse Ox O2 Delivery O2 Flow Rate FiO2 04/17/16 08:10 54 04/17/16 08:00 98.3 55 14 117/51 100 04/16/16 23:30 98.2 88 22 146/88 94 04/16/16 20:16 81 18 151/83 98 04/16/16 20:00 94 04/16/16 19:41 99.3 04/16/16 19:25 83 20 186/81 98 Room Air 04/16/16 18:23 73 16 165/74 93 Room Air 04/16/16 14:16 108 18 157/77 93 Room Air 04/16/16 11:30 74 15 175/78 97 Room Air I/O 04/16/16 04/16/16 04/16/16 04/17/16 04/17/16 04/17/16 07:00 15:00 23:00 07:00 15:00 23:00 Intake Total 537 ml Output Total 800 ml 400 ml 400 ml Balance -800 ml -400 ml -400 ml 537 ml Intake IV Total 537 ml Output Urine Total 700 ml 400 ml 400 ml Emesis 100 ml # Voids 0 0 0 # Bowel Movements 1 1 Result Diagram: 04/17/1631404/17/16314 Other Results Laboratory Tests Test 04/16/16 04/16/16 04/17/16 10:25 20:36 03:15 Hemoglobin 8.5 9.4 8.3 Hematocrit 25.2 28.0 23.7 White Blood Count 7.7 Red Blood Count 2.60 Mean Corpuscular Volume 91.0 Mean Corpuscular Hemoglobin 31.7 Mean Corpuscular Hemoglobin 34.9 Concent Red Cell Distribution Width 12.9 Platelet Count 235 Mean Platelet Volume 8.0 Neutrophils (%) (Auto) 77.9 Lymphocytes (%) (Auto) 13.4 Monocytes (%) (Auto) 8.0 Eosinophils (%) (Auto) 0.1 Basophils (%) (Auto) 0.6 Neutrophils # (Auto) 6.0 Lymphocytes # (Auto) 1.0 Monocytes # (Auto) 0.6 Eosinophils # (Auto) 0.0 Basophils # (Auto) 0.0 CBC Comment DIFF FINAL Differential Comment Sodium Level 137 Potassium Level 4.6 Chloride Level 104 Carbon Dioxide Level 26.7 Anion Gap 6 Blood Urea Nitrogen 29 Creatinine 0.87 Estimat Glomerular Filtration 62 Rate Random Glucose 132 Calcium Level 8.0 Total Bilirubin 0.5 Aspartate Amino Transf 16 (AST/SGOT) Alanine Aminotransferase 14 (ALT/SGPT) Alkaline Phosphatase 74 Total Protein 5.2 Albumin 2.3 Date/Time Procedure Status Source Growth 04/16/16 02:35 Influenza Types A,B Antigen (FRANK) - Final Complete Nasal Washing NEGATIVE FOR FLU A AND B ANTIGEN.... 04/16/16 02:10 Aerobic Blood Culture Received Blood Peripheral Pending 04/16/16 02:10 Anaerobic Blood Culture Received Blood Peripheral Pending Physical Exam Physical Exam The patient is alert and oriented x1, pleasant, following commands, lying on bed without any apparent distress at present. VITAL SIGNS: Reviewed HEENT: Head is normocephalic. Eyes, negative conjunctival icterus. Mouth slightly dry tongue and mouth. NECK: Supple. No increased JVD. Central trachea. RESPIRATORY: Chest is clear to auscultation. CARDIOVASCULAR: S1 and S2 audible. Unable to hear any S3 gallop. GI: Abdomen is soft, very minimally tender in the lower abdomen. No rebound, no guarding noted. No organomegaly. Positive bowel sounds. The patient's stomach is not distended. SKIN: Warm and dry. EXTREMITIES: No cyanosis or pedal edema appreciated. PULMONOLOGIST/INTENSIVIST: Alert, oriented to x1, normal facial features, normal speech. There is a decreased muscle mass. PSYCH: Appropriate mood and affect at present. A/P Assessment and Plan 1. High-grade fever on admission with leukocytosis secondary to sepsis on admission 2. Obstipation 3. Hematemesis in nursing facility. 4. Altered mental status metabolic encephalopathy/dementia. 5. Schizoaffective disorder with depression and anxiety. 6. Hypertension 7. Diabetes 8. History of anemia. 9. CAD history with a stent and heart surgery history in the past. 10. History of back surgery. 11. As per records history of DVT. PLAN Continue IV hydration. Monitor H&H. Stable Empiric antibiotics. Follow cultures. Disimpaction done in the ER, now moving his stools as per patient RN Appreciate GI consult. p.r.n. blood transfusion. Monitor sugar with sliding scale insulin coverage. Monitor blood pressure. Labs for tomorrow. Continue some of home medication as indicated. Start on regular diet Condition discussed with RN. Tried to explain to the patient. Condition is guarded, prognosis guarded. Further recommendation to follow as per patient progress. DNR. Alex Franz MD Apr 17, 2016 09:58
[2016-04-17 11:58] LABS: HEMATOCRIT 23.1 % (35.0-46.0); REVIEW FLAG FINAL
[2016-04-17] MEDS: clonazePAM 0.5 MG TAB PO SCH (15:01)
--- NOTE | 2016-04-17 16:01 | HHI.GIFU ---
Subjective Remarks Resting in bed. Lethargic. Does not appear to have any tenderness/pain. Nurse reports that she has not had any obvious active bleeding with vomiting or blood from below, although she is getting transfused for drop in hgb. (July Rodríguez) Objective Vitals I&O Vital Signs Date Time Temp Pulse Resp B/P Pulse Ox O2 Delivery O2 Flow Rate FiO2 04/17/16 15:12 98.0 55 19 109/40 98 04/17/16 14:56 98.5 55 20 110/52 98 04/17/16 12:00 97.9 60 12 110/50 99 04/17/16 08:10 54 04/17/16 08:00 98.3 55 14 117/51 100 04/16/16 23:30 98.2 88 22 146/88 94 04/16/16 20:16 81 18 151/83 98 04/16/16 20:00 94 04/16/16 19:41 99.3 04/16/16 19:25 83 20 186/81 98 Room Air 04/16/16 18:23 73 16 165/74 93 Room Air I/O 04/16/16 04/16/16 04/16/16 04/17/16 04/17/16 04/17/16 07:00 15:00 23:00 07:00 15:00 23:00 Intake Total 537 ml Output Total 800 ml 400 ml 400 ml Balance -800 ml -400 ml -400 ml 537 ml Intake IV Total 537 ml Output Urine Total 700 ml 400 ml 400 ml Emesis 100 ml # Voids 0 0 0 # Bowel Movements 1 1 Laboratory Laboratory Tests Test 04/16/16 04/17/16 04/17/16 04/17/16 20:36 03:15 10:25 13:00 Hemoglobin 9.4 8.3 7.8 Hematocrit 28.0 23.7 23.1 White Blood Count 7.7 Red Blood Count 2.60 Mean Corpuscular Volume 91.0 Mean Corpuscular Hemoglobin 31.7 Mean Corpuscular Hemoglobin 34.9 Concent Red Cell Distribution Width 12.9 Platelet Count 235 Mean Platelet Volume 8.0 Neutrophils (%) (Auto) 77.9 Lymphocytes (%) (Auto) 13.4 Monocytes (%) (Auto) 8.0 Eosinophils (%) (Auto) 0.1 Basophils (%) (Auto) 0.6 Neutrophils # (Auto) 6.0 Lymphocytes # (Auto) 1.0 Monocytes # (Auto) 0.6 Eosinophils # (Auto) 0.0 Basophils # (Auto) 0.0 CBC Comment DIFF FINAL Differential Comment Sodium Level 137 Potassium Level 4.6 Chloride Level 104 Carbon Dioxide Level 26.7 Anion Gap 6 Blood Urea Nitrogen 29 Creatinine 0.87 Estimat Glomerular Filtration 62 Rate Random Glucose 132 Calcium Level 8.0 Total Bilirubin 0.5 Aspartate Amino Transf 16 (AST/SGOT) Alanine Aminotransferase 14 (ALT/SGPT) Alkaline Phosphatase 74 Total Protein 5.2 Albumin 2.3 Blood Type O NEGATIVE Antibody Screen NEGATIVE Crossmatch Leukocyte-Reduced Red Blood Cells Blood Bank Comment Date/Time Procedure Status Source Growth 04/16/16 02:35 Influenza Types A,B Antigen (FRANK) - Final Complete Nasal Washing NEGATIVE FOR FLU A AND B ANTIGEN.... 04/16/16 02:10 Aerobic Blood Culture - Preliminary Resulted Blood Peripheral NO GROWTH IN 1 DAY 04/16/16 02:10 Anaerobic Blood Culture - Preliminary Resulted Blood Peripheral NO GROWTH IN 1 DAY Imaging Last Impressions Abdomen/Pelvis CT 04/16/16 0200 Signed Impressions: Service Date/Time: Saturday, April 16, 2016 03:14 - CONCLUSION: 1. Large hiatal hernia. 2. Fecal impaction in the rectum. 3. No perceptible mass lesion. 4. Small left pleural effusion. 5. Chronic, benign-appearing bilateral renal cysts. Mazin Arroyo MD Chest X-Ray 04/16/16 0000 Signed Impressions: Service Date/Time: Saturday, April 16, 2016 00:13 - CONCLUSION: Patchy mild airspace disease on the left. Mazin Arroyo MD Physical Exam HEENT: Normocephalic; atraumatic; no jaundice. CHEST: CTA CARDIAC: RRR. ABDOMEN: Soft, nondistended, nontender; no hepatosplenomegaly; bowel sounds are present in all four quadrants. EXTREMITIES: No clubbing, cyanosis, or edema. SKIN: Generalized pallor PATIENT CARE REPRESENTATIVE: Lethargic, (July Rodríguez) Assessment and Plan Plan ASSESSMENT: - Coffee ground emesis. Pt with history of dementia and not able to provide any history, sent from [facility] for AMS and reported Coffee ground emesis. Abdomen/Pelvis CT (04/16/16)-----> 1. Large hiatal hernia. 2. Fecal impaction in the rectum. 3. No perceptible mass lesion. 4. Small left pleural effusion. 5. Chronic, benign-appearing bilateral renal cysts. The nurse reports that she has not had any further nausea or vomiting and has not passed any blood from below, but she did have a drop in her hgb from 10.2 to 7.8/23.1 since yesterday. Will obtain consents and make NPO after MN. If HH is stable and no obvious active bleeding, will plan for egd on Tuesday. If active bleeding or further drop in hgb, will schedule for tomorrow. - Anemia, acute blood loss. Drop in her hgb from 10.2 to 7.8/23.1 since yesterday. Getting PRBC. - Obstipation. S/P disimpaction - Dementia, HTN per attending Plan: - Will need EGD tomorrow vs. Tuesday, timing to be determined based on serial H/H 's, clinical status - Obtain consents - Clear liquids - NPO after MN - Cont. PPI - Monitor HH - Transfuse as needed - Notify GI with active bleed - Supportive care - Further recommendations to follow based on results of above - Patient seen and examined by Dr. Sellers and myself and this note is written on his behalf. (July Rodríguez) Physician Comments Seen and examined with Ms. Anne POTTS, drop in H/H, but no bleeding. EGD planned once consents obtained. Contact made with family by KATLYN. (Arnel Sellers MD) July Rodríguez Apr 17, 2016 16:00 Arnel Sellers MD Apr 17, 2016 16:23
[2016-04-17] MEDS ORDERED: FUROSEMIDE 20 MG/2 ML VIAL IV PUSH ONE (17:30)
[2016-04-17] MEDS: traZODone HCL 100 MG TAB PO SCH (20:00)
[2016-04-17 22:19] LABS: HEMATOCRIT 29.5 % (35.0-46.0); REVIEW FLAG FINAL
[2016-04-18] VITALS: BP 128/57; PULSE 56; RESP 16; TEMP 98; O2SAT 97
[2016-04-18] MEDS: VANCOMYCIN INJ 750 MG in SODIUM CHLOR 0.9% 250 ML INJ 250 ML IV SCH (04:05)
[2016-04-18] MEDS: PIPERACIL-TAZO 3.375 GM PREMIX 50 ML IV SCH ×4 (04:05→20:16)
[2016-04-18 04:48] VITALS: BP 100/47; PULSE 53; RESP 20; TEMP 96.5; O2SAT 94
[2016-04-18] MEDS: SODIUM CHLOR 0.9% 1000 ML INJ 1,000 ML IV SCH ×2 (05:34→12:03)
[2016-04-18] MEDS: INSULIN ASPART SUPPLEMENTAL SCALE SQ SCH ×4 (05:34→20:16)
[2016-04-18] MEDS: PHENYTOIN SUSP 100 MG/4 ML CUP PO SCH ×3 (05:35→20:17)
[2016-04-18 06:56] LABS: HEMATOCRIT 29.9 % (35.0-46.0); MEAN CELL VOLUME 88.5 FL (80.0-100.0); MEAN CORPUSCULAR HEMOGLOBIN 30.7 PG (27.0-34.0); MEAN CORPUSCULAR HGB CONC 34.7 % (32.0-36.0); PLATELET COUNT 212 TH/MM3 (150-450); RED BLOOD COUNT 3.38 MIL/MM3 (4.00-5.30); RED CELL DISTRIBUTION WIDTH 14.2 % (11.6-17.2); REVIEW FLAG FINAL; WHITE BLOOD COUNT 6.2 TH/MM3 (4.0-11.0)
[2016-04-18] MEDS: METHYLNALTREXONE BROMIDE 12 MG/0.6 ML VIAL SQ SCH (07:14)
[2016-04-18 07:36] LABS: BICARBONATE 26.9 MEQ/L (21.0-32.0); POTASSIUM 3.2 MEQ/L (3.5-5.1)
[2016-04-18] MEDS: PANTOPRAZOLE SODIUM 40 MG VIAL IV SCH (07:43)
[2016-04-18] MEDS: SODIUM CHLORIDE 0.9% FLUSH 5 ML FLUSH FLUSH SCH ×2 (07:44→20:17)
[2016-04-18] MEDS: LACTATED RINGER'S 1000 ML IV SCH (07:45)
[2016-04-18 08:00] VITALS: BP 122/62; PULSE 53; RESP 16; TEMP 98.2; O2SAT 95
[2016-04-18] MEDS: METOPROLOL TARTRATE 50 MG TAB PO SCH ×2 (09:00→20:23)
[2016-04-18] MEDS: guaiFENesin E.R. 600 MG TAB PO SCH ×3 (09:00→20:17)
[2016-04-18] MEDS: GABAPENTIN 300 MG CAP PO SCH ×3 (09:00→20:16)
[2016-04-18] MEDS: ESCITALOPRAM OXALATE 20 MG TAB PO SCH ×2 (09:00→12:05)
[2016-04-18] MEDS: DOCUSATE SODIUM 100 MG CAP PO SCH ×2 (09:00→20:16)
[2016-04-18] MEDS: risperiDONE 0.25 MG TAB PO SCH ×3 (09:00→20:16)
[2016-04-18] MEDS: LISINOPRIL 5 MG TAB PO SCH ×2 (09:00→12:04)
[2016-04-18] MEDS: POLYSACCHARIDE IRON COMPLEX 150 MG CAP PO SCH ×2 (09:00→12:04)
[2016-04-18] MEDS: DIVALPROEX SODIUM SPRINKLES 125 MG CAP PO SCH ×2 (09:00→12:04)
[2016-04-18] MEDS: clonazePAM 1 MG TAB PO SCH ×3 (09:00→20:16)
--- NOTE | 2016-04-18 11:51 | HHI.PR ---
Subjective Remarks Patient is confused alert and oriented 1 Pleasant Offering no complaint Lying on bed without any apparent distress Unable to get good review of system Objective Objective Results - Vital Signs Date Time Temp Pulse Resp B/P Pulse Ox O2 Delivery O2 Flow Rate FiO2 04/18/16 08:00 98.2 53 16 122/62 95 04/18/16 04:48 96.5 53 20 100/47 94 04/18/16 00:00 98.0 56 16 128/57 97 04/17/16 21:00 98.0 56 16 128/57 97 04/17/16 20:00 60 04/17/16 20:00 99.3 60 18 117/55 98 04/17/16 17:41 98.8 63 20 119/55 98 04/17/16 17:26 98.9 64 20 123/58 98 04/17/16 16:00 98.0 58 19 109/44 98 04/17/16 15:12 98.0 55 19 109/40 98 04/17/16 14:56 98.5 55 20 110/52 98 04/17/16 12:00 97.9 60 12 110/50 99 I/O 04/17/16 04/17/16 04/17/16 04/18/16 04/18/16 04/18/16 07:00 15:00 23:00 07:00 15:00 23:00 Intake Total 1606 ml 820 ml 812 ml Output Total 350 ml 1200 ml 700 ml Balance 1256 ml -380 ml 112 ml Intake Oral 120 ml 120 ml 120 ml IV Total 1486 ml 200 ml 692 ml Packed Cells 500 ml Output Urine Total 350 ml 1200 ml 700 ml # Bowel Movements 0 0 0 Result Diagram: 04/18/1615 04/18/1615 Other Results Laboratory Tests Test 04/17/16 04/17/16 04/18/16 13:00 21:40 06:15 Blood Type O NEGATIVE Antibody Screen NEGATIVE Crossmatch Leukocyte-Reduced Red Blood Cells Blood Bank Comment Hemoglobin 10.4 10.4 Hematocrit 29.5 29.9 White Blood Count 6.2 Red Blood Count 3.38 Mean Corpuscular Volume 88.5 Mean Corpuscular Hemoglobin 30.7 Mean Corpuscular Hemoglobin 34.7 Concent Red Cell Distribution Width 14.2 Platelet Count 212 Mean Platelet Volume 7.9 Sodium Level 139 Potassium Level 3.2 Chloride Level 104 Carbon Dioxide Level 26.9 Anion Gap 8 Blood Urea Nitrogen 20 Creatinine 0.81 Estimat Glomerular Filtration 68 Rate Random Glucose 97 Calcium Level 7.6 Date/Time Procedure Status Source Growth 04/16/16 02:35 Influenza Types A,B Antigen (FRANK) - Final Complete Nasal Washing NEGATIVE FOR FLU A AND B ANTIGEN.... 04/16/16 02:10 Aerobic Blood Culture - Preliminary Resulted Blood Peripheral NO GROWTH IN 2 DAYS 04/16/16 02:10 Anaerobic Blood Culture - Preliminary Resulted Blood Peripheral NO GROWTH IN 2 DAYS Physical Exam Physical Exam The patient is alert and oriented x1, pleasant, following commands, lying on bed without any apparent distress at present. VITAL SIGNS: Reviewed HEENT: Head is normocephalic. Eyes, negative conjunctival icterus. Mouth slightly dry tongue and mouth. NECK: Supple. No increased JVD. Central trachea. RESPIRATORY: Chest is clear to auscultation. CARDIOVASCULAR: S1 and S2 audible. Unable to hear any S3 gallop. GI: Abdomen is soft, very minimally tender in the lower abdomen. No rebound, no guarding noted. No organomegaly. Positive bowel sounds. The patient's stomach is not distended. SKIN: Warm and dry. EXTREMITIES: No cyanosis or pedal edema appreciated. TELERADIOLOGIST: Alert, oriented to x1, normal facial features, normal speech. There is a decreased muscle mass. PSYCH: Appropriate mood and affect at present. A/P Assessment and Plan 1. High-grade fever on admission with leukocytosis secondary to sepsis on admission 2. Obstipation 3. Hematemesis in nursing facility. 4. Altered mental status metabolic encephalopathy/dementia. 5. Schizoaffective disorder with depression and anxiety. 6. Hypertension 7. Diabetes 8. History of anemia. 9. CAD history with a stent and heart surgery history in the past. 10. History of back surgery. 11. As per records history of DVT. PLAN Continue IV hydration. Labs reviewed Monitor H&H. Stable low potassium will replace Empiric antibiotics. Follow cultures. So far negative Disimpaction done in the ER, now moving his stools as per patient RN Appreciate GI consult. p.r.n. blood transfusion. Monitor sugar with sliding scale insulin coverage. Monitor blood pressure. Labs for tomorrow. Continue some of home medication as indicated. Start on regular diet Condition discussed with RN. Tried to explain to the patient. Physical therapy Further recommendation to follow as per patient progress. DNR. Alex Franz MD Apr 18, 2016 11:51
[2016-04-18 12:00] VITALS: BP 118/58; PULSE 58; RESP 18; TEMP 98; O2SAT 96
[2016-04-18] MEDS ORDERED: POTASSIUM CHLORIDE 20 MEQ CONTROLLED RELEASE TAB PO ONE (12:00)
--- NOTE | 2016-04-18 12:56 | EKG ---
Date Performed: 04/18/2016 Time Performed: 08:03:04 PTAGE: 80 years EKG: SINUS BRADYCARDIA POSSIBLE RIGHT VENTRICULAR CONDUCTION DELAY LEFT ANTERIOR FASCICULAR BLOC K PROBABLE SEPTAL MYOCARDIAL INFARCTION , PROBABLY OLD Compared to previous tracing, sinus rate has d ecreased ABNORMAL ECG PREVIOUS TRACING : 10/31/2014 14.01 DOCTOR: Darrius Acevedo Interpretating Date/Time 04/18/2016 12:53:19
[2016-04-18] MEDS: clonazePAM 0.5 MG TAB PO SCH (14:27)
[2016-04-18 16:00] VITALS: BP 116/54; PULSE 54; RESP 20; TEMP 97.1; O2SAT 96
[2016-04-18 20:00] VITALS: BP 130/62; PULSE 60; RESP 18; TEMP 97.4; O2SAT 95
[2016-04-18] MEDS: traZODone HCL 100 MG TAB PO SCH (20:16)
[2016-04-19] VITALS (7 sets, daily range): BP systolic 133–148; BP diastolic 63–86; PULSE 54–64; RESP 17–20; TEMP 97–98.1; O2SAT 93–97
[2016-04-19] MEDS: LACTATED RINGER'S 1000 ML IV SCH (02:15)
[2016-04-19] MEDS: PIPERACIL-TAZO 3.375 GM PREMIX 50 ML IV SCH ×4 (02:55→22:22)
[2016-04-19] MEDS: SODIUM CHLOR 0.9% 1000 ML INJ 1,000 ML IV SCH ×2 (02:55→12:29)
[2016-04-19] MEDS ORDERED: PHARMACY ORDERED LAB XX ONE (03:45)
[2016-04-19] MEDS: PHENYTOIN SUSP 100 MG/4 ML CUP PO SCH ×3 (04:53→22:16)
[2016-04-19 04:56] LABS: MEAN CELL VOLUME 88.7 FL (80.0-100.0); MEAN CORPUSCULAR HEMOGLOBIN 30.5 PG (27.0-34.0); MEAN CORPUSCULAR HGB CONC 34.4 % (32.0-36.0); PLATELET COUNT 227 TH/MM3 (150-450); RED BLOOD COUNT 3.49 MIL/MM3 (4.00-5.30); RED CELL DISTRIBUTION WIDTH 14.1 % (11.6-17.2); REVIEW FLAG FINAL; WHITE BLOOD COUNT 5.4 TH/MM3 (4.0-11.0)
[2016-04-19] MEDS: fentaNYL 25 MCG/HR PATCH T-DERMAL SCH (04:58)
[2016-04-19] MEDS: VANCOMYCIN INJ 750 MG in SODIUM CHLOR 0.9% 250 ML INJ 250 ML IV SCH (05:00)
[2016-04-19] MEDS: INSULIN ASPART SUPPLEMENTAL SCALE SQ SCH ×4 (05:00→22:14)
[2016-04-19 05:24] LABS: BICARBONATE 24.9 MEQ/L (21.0-32.0); POTASSIUM 3.5 MEQ/L (3.5-5.1)
[2016-04-19] MEDS: PANTOPRAZOLE SODIUM 40 MG VIAL IV SCH (10:18)
[2016-04-19] MEDS: DOCUSATE SODIUM 100 MG CAP PO SCH ×2 (10:19→22:15)
[2016-04-19] MEDS: METOPROLOL TARTRATE 50 MG TAB PO SCH ×2 (10:19→22:15)
[2016-04-19] MEDS: LISINOPRIL 5 MG TAB PO SCH (10:19)
[2016-04-19] MEDS: DIVALPROEX SODIUM SPRINKLES 125 MG CAP PO SCH (10:19)
[2016-04-19] MEDS: guaiFENesin E.R. 600 MG TAB PO SCH ×2 (10:20→22:15)
[2016-04-19] MEDS: risperiDONE 0.25 MG TAB PO SCH ×2 (10:20→22:15)
[2016-04-19] MEDS: ESCITALOPRAM OXALATE 20 MG TAB PO SCH (10:20)
[2016-04-19] MEDS: clonazePAM 1 MG TAB PO SCH ×2 (10:20→22:16)
[2016-04-19] MEDS: POLYSACCHARIDE IRON COMPLEX 150 MG CAP PO SCH (10:21)
[2016-04-19] MEDS: METHYLNALTREXONE BROMIDE 12 MG/0.6 ML VIAL SQ SCH (10:21)
[2016-04-19] MEDS: SODIUM CHLORIDE 0.9% FLUSH 5 ML FLUSH FLUSH SCH ×2 (10:22→21:00)
[2016-04-19] MEDS: GABAPENTIN 300 MG CAP PO SCH ×2 (10:22→21:00)
[2016-04-19] MEDS: clonazePAM 0.5 MG TAB PO SCH (12:28)
--- NOTE | 2016-04-19 13:09 | HHI.GIFU ---
Subjective Remarks Resting in bed. Nurse reports that she was given a brownie earlier today and ate this, despite being npo with sign on door. No n/v. No abdominal pain. ( July Rodríguez) Objective Vitals I&O Vital Signs Date Time Temp Pulse Resp B/P Pulse Ox O2 Delivery O2 Flow Rate FiO2 04/19/16 07:47 98.1 56 18 135/73 96 04/19/16 04:26 97.7 62 18 137/69 95 04/19/16 00:00 98.0 57 18 148/86 96 04/18/16 20:00 97.4 60 18 130/62 95 04/18/16 16:00 97.1 54 20 116/54 96 I/O 04/18/16 04/18/16 04/18/16 04/19/16 04/19/16 04/19/16 07:00 15:00 23:00 07:00 15:00 23:00 Intake Total 812 ml 720 ml 970 ml 587 ml Output Total 700 ml 300 ml 400 ml 450 ml Balance 112 ml 420 ml 570 ml 137 ml Intake Oral 120 ml 720 ml 120 ml 0 ml IV Total 692 ml 850 ml 587 ml Output Urine Total 700 ml 300 ml 400 ml 450 ml # Bowel Movements 0 1 1 1 Laboratory Laboratory Tests Test 04/19/16 04:15 White Blood Count 5.4 Red Blood Count 3.49 Hemoglobin 10.7 Hematocrit 31.0 Mean Corpuscular Volume 88.7 Mean Corpuscular Hemoglobin 30.5 Mean Corpuscular Hemoglobin 34.4 Concent Red Cell Distribution Width 14.1 Platelet Count 227 Mean Platelet Volume 7.9 Sodium Level 139 Potassium Level 3.5 Chloride Level 107 Carbon Dioxide Level 24.9 Anion Gap 7 Blood Urea Nitrogen 14 Creatinine 0.63 Estimat Glomerular Filtration 91 Rate Random Glucose 89 Calcium Level 7.8 Vancomycin Level Trough 8.0 Date/Time Procedure Status Source Growth 04/16/16 02:35 Influenza Types A,B Antigen (FRANK) - Final Complete Nasal Washing NEGATIVE FOR FLU A AND B ANTIGEN.... 04/16/16 02:10 Aerobic Blood Culture - Preliminary Resulted Blood Peripheral NO GROWTH IN 3 DAYS 04/16/16 02:10 Anaerobic Blood Culture - Preliminary Resulted Blood Peripheral NO GROWTH IN 3 DAYS Imaging Last Impressions Abdomen/Pelvis CT 04/16/16 0200 Signed Impressions: Service Date/Time: Saturday, April 16, 2016 03:14 - CONCLUSION: 1. Large hiatal hernia. 2. Fecal impaction in the rectum. 3. No perceptible mass lesion. 4. Small left pleural effusion. 5. Chronic, benign-appearing bilateral renal cysts. Mazin Arroyo MD Chest X-Ray 04/16/16 0000 Signed Impressions: Service Date/Time: Saturday, April 16, 2016 00:13 - CONCLUSION: Patchy mild airspace disease on the left. Mazin Arroyo MD Physical Exam HEENT: Normocephalic; atraumatic; no jaundice. CHEST: CTA CARDIAC: RRR. ABDOMEN: Soft, nondistended, nontender; no hepatosplenomegaly; bowel sounds are present in all four quadrants. EXTREMITIES: No clubbing, cyanosis, or edema. 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 Pt with history of dementia and not able to provide any history, sent from [facility] for AMS and reported Coffee ground emesis. Abdomen/Pelvis CT (04/16/16)-----> 1. Large hiatal hernia. 2. Fecal impaction in the rectum. 3. No perceptible mass lesion. 4. Small left pleural effusion. 5. Chronic, benign-appearing bilateral renal cysts. She was scheduled for EGD today, but was ate a brownie that was given to her (despite being NPO with sign on door ). Will reschedule for tomorrow. .0. - Anemia, acute blood loss. S/P 2 units PRBC. HH .0 - Obstipation. S/P disimpaction - Dementia, HTN per attending Plan: - Plan for egd in am (pt ate brownie and therefore egd has been cancelled for today) - Obtain consents - Clear liquids - NPO after MN - Cont. PPI - Monitor HH - Transfuse as needed - Notify GI with active bleed - Supportive care - Further recommendations to follow based on results of above - Patient seen and examined by Dr. Kelley and myself and this note is written on her behalf. (Rodríguez,July Marie BUILDING CERTIFIER) Physician Comments agree with above (Antonette Kelley MD) July Rodríguez Apr 19, 2016 13:09 Antonette Kelley MD Apr 19, 2016 18:49
--- NOTE | 2016-04-19 14:09 | HHI.PR ---
Subjective Remarks Patient is confused alert and oriented 1. Lying on bed without any apparent distress Pleasant following commands Offering no complaint No pain And no nausea vomiting No shortness of breath Unable to get good review of system Objective Objective Results - Vital Signs Date Time Temp Pulse Resp B/P Pulse Ox O2 Delivery O2 Flow Rate FiO2 04/19/16 12:00 97.0 62 18 133/75 97 04/19/16 07:47 98.1 56 18 135/73 96 04/19/16 04:26 97.7 62 18 137/69 95 04/19/16 00:00 98.0 57 18 148/86 96 04/18/16 20:00 97.4 60 18 130/62 95 04/18/16 16:00 97.1 54 20 116/54 96 I/O 04/18/16 04/18/16 04/18/16 04/19/16 04/19/16 04/19/16 07:00 15:00 23:00 07:00 15:00 23:00 Intake Total 812 ml 720 ml 970 ml 587 ml Output Total 700 ml 300 ml 400 ml 450 ml Balance 112 ml 420 ml 570 ml 137 ml Intake Oral 120 ml 720 ml 120 ml 0 ml IV Total 692 ml 850 ml 587 ml Output Urine Total 700 ml 300 ml 400 ml 450 ml # Bowel Movements 0 1 1 1 Result Diagram: 04/19/16 0415 04/19/16 0415 Other Results Laboratory Tests Test 04/19/16 04:15 White Blood Count 5.4 Red Blood Count 3.49 Hemoglobin 10.7 Hematocrit 31.0 Mean Corpuscular Volume 88.7 Mean Corpuscular Hemoglobin 30.5 Mean Corpuscular Hemoglobin 34.4 Concent Red Cell Distribution Width 14.1 Platelet Count 227 Mean Platelet Volume 7.9 Sodium Level 139 Potassium Level 3.5 Chloride Level 107 Carbon Dioxide Level 24.9 Anion Gap 7 Blood Urea Nitrogen 14 Creatinine 0.63 Estimat Glomerular Filtration 91 Rate Random Glucose 89 Calcium Level 7.8 Vancomycin Level Trough 8.0 Date/Time Procedure Status Source Growth 04/16/16 02:35 Influenza Types A,B Antigen (FRANK) - Final Complete Nasal Washing NEGATIVE FOR FLU A AND B ANTIGEN.... 04/16/16 02:10 Aerobic Blood Culture - Preliminary Resulted Blood Peripheral NO GROWTH IN 3 DAYS 04/16/16 02:10 Anaerobic Blood Culture - Preliminary Resulted Blood Peripheral NO GROWTH IN 3 DAYS Physical Exam Physical Exam The patient is alert and oriented x1, pleasant, following commands, lying on bed without any apparent distress at present. VITAL SIGNS: Reviewed HEENT: Head is normocephalic. Eyes, negative conjunctival icterus. Mouth slightly dry tongue and mouth. NECK: Supple. No increased JVD. Central trachea. RESPIRATORY: Chest is clear to auscultation. CARDIOVASCULAR: S1 and S2 audible. Unable to hear any S3 gallop. GI: Abdomen is soft, very minimally tender in the lower abdomen. No rebound, no guarding noted. No organomegaly. Positive bowel sounds. The patient's stomach is not distended. SKIN: Warm and dry. EXTREMITIES: No cyanosis or pedal edema appreciated. 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 There is a decreased muscle mass. PSYCH: Appropriate mood and affect at present. A/P Assessment and Plan 1. High-grade fever on admission with leukocytosis secondary to sepsis on admission 2. Obstipation 3. Hematemesis in nursing facility. 4. Altered mental status metabolic encephalopathy/dementia. 5. Schizoaffective disorder with depression and anxiety. 6. Hypertension 7. Diabetes 8. History of anemia. 9. CAD history with a stent and heart surgery history in the past. 10. History of back surgery. 11. As per records history of DVT. 12. Stage IV decubitus ulcer PLAN IV hydration. Labs reviewed H&H. Stable low potassium improved Empiric antibiotics. Follow cultures. So far negative Disimpaction done in the ER, now moving his stools as per patient RN Appreciate GI consult. Still awaiting EGD. As per RN patient ate today p.r.n. blood transfusion. Monitor sugar with sliding scale insulin coverage. Monitor blood pressure. Continue some of home medication as indicated. Appreciated wound care input Start on regular diet Condition discussed with RN. Tried to explain to the patient. Physical therapy Further recommendation to follow as per patient progress. DNR. Alex Franz MD Apr 19, 2016 14:09
[2016-04-19] MEDS: traZODone HCL 100 MG TAB PO SCH (22:15)
[2016-04-20] VITALS (7 sets, daily range): BP systolic 124–160; BP diastolic 59–72; PULSE 50–53; RESP 16–18; TEMP 96.2–97.8; O2SAT 93–100
[2016-04-20] MEDS: SODIUM CHLOR 0.9% 1000 ML INJ 1,000 ML IV SCH ×3 (00:25→18:05)
[2016-04-20] MEDS ORDERED: VANCOMYCIN INJ 900 MG in SODIUM CHLOR 0.9% 250 ML INJ 250 ML IV SCH (01:00)
[2016-04-20] MEDS: LACTATED RINGER'S 1000 ML IV SCH (02:15)
[2016-04-20] MEDS: PIPERACIL-TAZO 3.375 GM PREMIX 50 ML IV SCH ×4 (03:23→22:29)
[2016-04-20] MEDS: PHENYTOIN SUSP 100 MG/4 ML CUP PO SCH ×3 (05:41→22:31)
[2016-04-20] MEDS: INSULIN ASPART SUPPLEMENTAL SCALE SQ SCH ×4 (05:49→22:38)
[2016-04-20] MEDS: SODIUM CHLORIDE 0.9% FLUSH 5 ML FLUSH FLUSH SCH ×2 (08:32→21:00)
[2016-04-20] MEDS: METOPROLOL TARTRATE 50 MG TAB PO SCH ×2 (08:33→11:21)
[2016-04-20] MEDS ORDERED: PROPOFOL 200 MG/20 ML AMP IV ONE (09:42)
[2016-04-20] MEDS: guaiFENesin E.R. 600 MG TAB PO SCH ×2 (11:19→22:30)
[2016-04-20] MEDS: risperiDONE 0.25 MG TAB PO SCH ×2 (11:19→22:29)
[2016-04-20] MEDS: clonazePAM 1 MG TAB PO SCH ×2 (11:20→22:29)
[2016-04-20] MEDS: POLYSACCHARIDE IRON COMPLEX 150 MG CAP PO SCH (11:22)
[2016-04-20] MEDS: DOCUSATE SODIUM 100 MG CAP PO SCH ×2 (11:23→22:30)
[2016-04-20] MEDS: LISINOPRIL 5 MG TAB PO SCH (11:23)
[2016-04-20] MEDS: ESCITALOPRAM OXALATE 20 MG TAB PO SCH (11:24)
[2016-04-20] MEDS: GABAPENTIN 300 MG CAP PO SCH ×2 (11:24→22:30)
[2016-04-20] MEDS: PANTOPRAZOLE SODIUM 40 MG VIAL IV SCH (11:25)
[2016-04-20] MEDS: DIVALPROEX SODIUM SPRINKLES 125 MG CAP PO SCH (11:26)
[2016-04-20] MEDS: METHYLNALTREXONE BROMIDE 12 MG/0.6 ML VIAL SQ SCH (11:27)
[2016-04-20] MEDS: SUCRALFATE 1 GM/10 ML CUP PO SCH ×3 (11:31→22:31)
--- NOTE | 2016-04-20 12:45 | HHI.PR ---
Subjective Remarks Pleasantly confused Poor historian No chest pain Shortness of breath Diarrhea 3 today Objective Objective Results - Vital Signs Date Time Temp Pulse Resp B/P Pulse Ox O2 Delivery O2 Flow Rate FiO2 04/20/16 09:15 97.8 53 16 147/60 95 04/20/16 08:00 96.7 51 16 141/69 100 04/20/16 04:00 97.5 50 18 160/72 98 04/20/16 00:00 97.3 53 18 135/64 95 04/19/16 22:22 54 04/19/16 20:00 97.6 54 20 138/63 93 04/19/16 16:00 97.5 64 17 135/72 97 I/O 04/19/16 04/19/16 04/19/16 04/20/16 04/20/16 04/20/16 07:00 15:00 23:00 07:00 15:00 23:00 Intake Total 587 ml 586 ml 40 ml 520 ml 225 ml Output Total 450 ml 300 ml 200 ml 450 ml Balance 137 ml 286 ml -160 ml 70 ml 225 ml Intake Oral 0 ml 60 ml 40 ml 0 ml IV Total 587 ml 526 ml 0 ml 520 ml 225 ml Output Urine Total 450 ml 300 ml 200 ml 450 ml # Bowel Movements 1 0 0 1 Result Diagram: 04/19/1641404/19/16414 ROS General: Fatigue, Weakness (generalized), Other (Limited ROS due to patient's altered mental status, chronic.) GI: Diarrhea (3) Physical Exam Physical Exam PHYSICAL EXAMINATION GENERAL: This is a frail thin female who appears to be in no acute distress. She is awake, outset random. HEAD: Normocephalic without any lesion or mass noted. Facial features appear symmetric. OROPHARYNGEAL: Oropharynx without erythema or edema. NECK: Supple. No nuchal rigidity or lymphadenopathy. Trachea midline without deviation. CARDIAC: Regular rhythm, regular rate, S1 and S2 are heard. Murmur none; no gallops or rubs. LUNGS: Clear to auscultation bilaterally. Low volumes no wheeze, rhonchi or rale. No use of accessory muscles on inspiration or expiration. ABDOMEN: Soft, nontender, no organomegaly or masses. Bowel sounds are heard in all four quadrants. No rebound. No guarding. EXTREMITIES: No edema. Pulses equal bilateral. No cyanosis. NEUROLOGICAL: Patient mood and affect inappropriate. Flat affect, restless, restrained SKIN:Warm and moist Objective Remarks None A/P Assessment and Plan 1. High-grade fever on admission with leukocytosis secondary to sepsis on admission, no fever now 2. Obstipation 3. Hematemesis in nursing facility. 4. Altered mental status metabolic encephalopathy/dementia. 5. Schizoaffective disorder with depression and anxiety., Poor historian 6. Hypertension 7. Diabetes 8. History of anemia. 9. CAD history with a stent and heart surgery history in the past. 10. History of back surgery. 11. As per records history of DVT. 12. Stage IV decubitus ulcer 13. Bradycardia, heart rate 50s PLAN IV hydration continues Labs reviewed, H&H. Stable low potassium improved Empiric antibiotics. Follow cultures. So far negative Disimpaction done in the ER, now moving his stools as per patient RN Appreciate GI consult. EGD shows gastritis, hiatal hernia, no acute bleed, abdomen soft, but continues with diarrhea 3 today. May need colonoscopy. We will check C. difficile. p.r.n. blood transfusion. Monitor sugar with sliding scale insulin coverage, treatment for hypo-and hyperglycemia as warranted Monitor blood pressure, stable Continue some of home medication as indicated. Appreciated wound care input Start on regular diet, poor appetite, total feed Physical therapy, eval for needs strengthening Further recommendation to follow as per patient progress. DNR. Decreased Lopressor to 25mg. BID Alex Franz MD Apr 19, 2016 14:09 Discharge Planning SNF , discharge planning Discussed With: Nurse, Other (Dr. Franz patient seen on his behalf) Isabel Guardado Apr 20, 2016 12:45
[2016-04-20] MEDS: clonazePAM 0.5 MG TAB PO SCH (15:38)
[2016-04-20] MEDS: VANCOMYCIN 1,000 MG/NS 250 ML IV SCH ×2 (18:04)
[2016-04-20] MEDS ORDERED: FAMOTIDINE 20 MG TAB PO SCH (21:00)
[2016-04-20] MEDS: traZODone HCL 100 MG TAB PO SCH (22:30)
[2016-04-20] MEDS: METOPROLOL TARTRATE 25 MG TAB PO SCH (22:30)
[2016-04-21] VITALS: BP 121/58; PULSE 50; RESP 18; TEMP 96.6; O2SAT 96
[2016-04-21] MEDS: LACTATED RINGER'S 1000 ML IV SCH (02:15)
[2016-04-21] MEDS: PIPERACIL-TAZO 3.375 GM PREMIX 50 ML IV SCH ×4 (03:34→21:29)
[2016-04-21 04:00] VITALS: BP 156/70; PULSE 49; RESP 18; TEMP 96.9; O2SAT 97
[2016-04-21] MEDS: SODIUM CHLOR 0.9% 1000 ML INJ 1,000 ML IV SCH ×2 (05:57→21:29)
[2016-04-21] MEDS: SUCRALFATE 1 GM/10 ML CUP PO SCH ×4 (05:58→21:21)
[2016-04-21] MEDS: PHENYTOIN SUSP 100 MG/4 ML CUP PO SCH ×3 (05:58→21:21)
[2016-04-21] MEDS: INSULIN ASPART SUPPLEMENTAL SCALE SQ SCH ×4 (06:01→22:26)
[2016-04-21 08:00] VITALS: BP 148/76; PULSE 53; RESP 16; TEMP 97.1; O2SAT 96
[2016-04-21] MEDS: SODIUM CHLORIDE 0.9% FLUSH 5 ML FLUSH FLUSH SCH ×2 (08:20→21:00)
[2016-04-21] MEDS: DIVALPROEX SODIUM SPRINKLES 125 MG CAP PO SCH (08:22)
[2016-04-21] MEDS: ESCITALOPRAM OXALATE 20 MG TAB PO SCH (08:22)
[2016-04-21] MEDS: LISINOPRIL 5 MG TAB PO SCH (08:22)
[2016-04-21] MEDS: guaiFENesin E.R. 600 MG TAB PO SCH ×2 (08:22→21:20)
[2016-04-21] MEDS: METOPROLOL TARTRATE 25 MG TAB PO SCH ×2 (08:23→21:00)
[2016-04-21] MEDS: risperiDONE 0.25 MG TAB PO SCH ×2 (08:23→21:21)
[2016-04-21] MEDS: GABAPENTIN 300 MG CAP PO SCH ×2 (08:23→21:21)
[2016-04-21] MEDS: DOCUSATE SODIUM 100 MG CAP PO SCH ×2 (08:23→21:21)
[2016-04-21] MEDS: POLYSACCHARIDE IRON COMPLEX 150 MG CAP PO SCH (08:23)
[2016-04-21] MEDS: clonazePAM 1 MG TAB PO SCH ×2 (08:23→21:21)
[2016-04-21] MEDS: METHYLNALTREXONE BROMIDE 12 MG/0.6 ML VIAL SQ SCH (08:23)
[2016-04-21] MEDS: PANTOPRAZOLE SODIUM 40 MG VIAL IV SCH (08:24)
--- NOTE | 2016-04-21 10:16 | HHI.PR ---
Subjective Remarks Pleasantly confused, less restless Poor historian No chest pain Shortness of breath Stools normal consistency, (Isabel Guardado) Objective Objective Results - Vital Signs Date Time Temp Pulse Resp B/P Pulse Ox O2 Delivery O2 Flow Rate FiO2 04/21/16 08:00 97.1 53 16 148/76 96 04/21/16 04:00 96.9 49 18 156/70 97 04/21/16 00:00 96.6 50 18 121/58 96 04/20/16 20:00 96.4 50 18 139/70 93 04/20/16 16:00 96.2 50 16 124/59 95 04/20/16 12:00 97.1 50 16 154/67 95 I/O 04/20/16 04/20/16 04/20/16 04/21/16 04/21/16 04/21/16 07:00 15:00 23:00 07:00 15:00 23:00 Intake Total 520 ml 1023 ml 869 ml 60 ml 472 ml Output Total 450 ml 650 ml 450 ml 1250 ml Balance 70 ml 373 ml 419 ml -1190 ml 472 ml Intake Oral 0 ml 240 ml 240 ml 60 ml IV Total 520 ml 783 ml 629 ml 472 ml Output Urine Total 450 ml 650 ml 450 ml 1250 ml # Bowel Movements 1 3 1 0 (Isabel Guardado) Result Diagram: 04/19/16 0415 04/20/16 1220 Medications and IVs Active Medications Famotidine (Pepcid) 20 mg BID PO; Start 04/20/16 at 21:00; Stop 04/20/16 at 21: 00; Status DC Metoprolol Tartrate 25 mg 25 mg BID PO Last administered on 04/21/16t 08:23; Admin Dose 25 MG; Start 04/20/16 at 21:00 Miscellaneous Information SPECIFIC LAB TO BE SPENCER... ONCE ONCE XX; Start at 00:45; Stop 04/23/16 at 00:46 Miscellaneous Information SPECIFIC LAB TO BE DRAWN:VANCOMYCIN TROUGH DATE TO... 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 She is awake, calm her affect. Responding to verbal stimuli. HEAD: Normocephalic without any lesion or mass noted. Facial features appear symmetric. OROPHARYNGEAL: Oropharynx without erythema or edema. NECK: Supple. No nuchal rigidity or lymphadenopathy. Trachea midline without deviation. CARDIAC: Regular rhythm, regular rate, S1 and S2 are heard. Murmur none; no gallops or rubs. LUNGS: Clear to auscultation bilaterally. Low volumes no wheeze, rhonchi or rale. No use of accessory muscles on inspiration or expiration. ABDOMEN: Soft, nontender, no organomegaly or masses. Bowel sounds are heard in all four quadrants. No rebound. No guarding. EXTREMITIES: No edema. Pulses equal bilateral. No cyanosis. NEUROLOGICAL: Patient mood and affect inappropriate. Opens eyes and follows verbal. More appropriate today less restless SKIN:Warm and moist (Isabel Guardado) A/P Assessment and Plan 1. Gastritis. Esophalgitis 2. Obstipation 3. Hematemesis in nursing facility. 4. Altered mental status metabolic encephalopathy/dementia., 5. Schizoaffective disorder with depression and anxiety., Poor historian 6. Hypertension 7. Diabetes 8. History of anemia. 9. CAD history with a stent and heart surgery history in the past. 10. History of back surgery. 11. As per records history of DVT. 12. Stage IV decubitus ulcer 13. Bradycardia, heart rate 50 on 214, 53 today. Lopressor dose decreased yesterday. We'll monitor any further needs 14. Hiatal hernia PLAN IV hydration continues, patient now on by mouth Pepcid and IV Protonix Labs reviewed, H&H. Stable low potassium improved, monitor labs, BMP for a.m. Empiric antibiotics. Follow cultures. So far negative Disimpaction done in the ER, now moving his stools as per patient RN, stools now normal consistency, 2 yesterday Appreciate GI consult. EGD shows gastritis, hiatal hernia, no acute bleed, abdomen soft, We will check C. difficile/pending if patient has any more diarrhea Monitor sugar with sliding scale insulin coverage, treatment for hypo-and hyperglycemia as warranted Monitor blood pressure, stable Continue some of home medication as indicated. Appreciated wound care input Start on regular diet, poor appetite, total feed Physical therapy, eval for needs strengthening Restraints discontinued today. Spoke to nurse. Patient is calm and responding to verbal stimuli. Bed alarm on for her safety. We'll monitor. According to nurse patient becomes more restless in the evening, with . We will attempt to like the room turn on TV and give patient stimuli in the evenings and monitor. DNR. Decreased Lopressor to 25mg. BID Discharge planning within the next day or 2, SNF D/W Alex Franz MD D/W nurse, Discharge Planning SNF , discharge planning Discussed With: Nurse, Other (Dr. Franz patient seen on his behalf) (Isabel Guardado) Assessment and Plan Patient seen and examined as above Labs reviewed Medications reviewed Notes reviewed Plan of care discussed with PER DIEM PHYSICAL THERAPIST ASSISTANT Explained to patient Discussed with RN Patient is off of restraints from the this morning. Will observe and hopefully DC tomorrow (Alex Franz MD) Isabel Guardado Apr 21, 2016 10:16 Alex Franz MD Apr 21, 2016 11:59
--- NOTE | 2016-04-21 10:21 | HHI.GIFU ---
Subjective Remarks Resting in bed in no distress. No obvious bleeding. No distress. Confused. ( July Rodríguez) Objective Vitals I&O Vital Signs Date Time Temp Pulse Resp B/P Pulse Ox O2 Delivery O2 Flow Rate FiO2 04/21/16 08:00 97.1 53 16 148/76 96 04/21/16 04:00 96.9 49 18 156/70 97 04/21/16 00:00 96.6 50 18 121/58 96 04/20/16 20:00 96.4 50 18 139/70 93 04/20/16 16:00 96.2 50 16 124/59 95 04/20/16 12:00 97.1 50 16 154/67 95 I/O 04/20/16 04/20/16 04/20/16 04/21/16 04/21/16 04/21/16 07:00 15:00 23:00 07:00 15:00 23:00 Intake Total 520 ml 1023 ml 869 ml 60 ml 472 ml Output Total 450 ml 650 ml 450 ml 1250 ml Balance 70 ml 373 ml 419 ml -1190 ml 472 ml Intake Oral 0 ml 240 ml 240 ml 60 ml IV Total 520 ml 783 ml 629 ml 472 ml Output Urine Total 450 ml 650 ml 450 ml 1250 ml # Bowel Movements 1 3 1 0 Laboratory Laboratory Tests Test 04/20/16 12:20 Creatinine 0.63 Estimat Glomerular Filtration 91 Rate Imaging Last Impressions Abdomen/Pelvis CT 04/16/16 0200 Signed Impressions: Service Date/Time: Saturday, April 16, 2016 03:14 - CONCLUSION: 1. Large hiatal hernia. 2. Fecal impaction in the rectum. 3. No perceptible mass lesion. 4. Small left pleural effusion. 5. Chronic, benign-appearing bilateral renal cysts. Mazin Arroyo MD Chest X-Ray 04/16/16 0000 Signed Impressions: Service Date/Time: Saturday, April 16, 2016 00:13 - CONCLUSION: Patchy mild airspace disease on the left. Mazin Arroyo MD Physical Exam HEENT: Normocephalic; atraumatic; no jaundice. CHEST: CTA CARDIAC: RRR. ABDOMEN: Soft, nondistended, nontender; no hepatosplenomegaly; bowel sounds are present in all four quadrants. EXTREMITIES: Generalized edema. 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 Pt with history of dementia and not able to provide any history, sent from [facility] for AMS and reported Coffee ground emesis. Abdomen/Pelvis CT (04/16/16)-----> 1. Large hiatal hernia. 2. Fecal impaction in the rectum. 3. No perceptible mass lesion. 4. Small left pleural effusion. 5. Chronic, benign-appearing bilateral renal cysts. S/P EGD (04/20/16)---> gastritis in the antrum, severe esophagitis distal esophagus, large hiatal hernia, retroflexed views revealed a hiatal hernia. .31.0. - Anemia, acute blood loss. S/P 2 units PRBC. HH .10/04.0 - Obstipation. S/P disimpaction - Dementia, HTN per attending Plan: - UVALDO - Await pathology - Cont. PPI - Monitor HH - Transfuse as needed - Notify GI with active bleed - Supportive care - Further recommendations to follow based on results of above - Patient seen and examined by Dr. Kelley and myself and this note is written on her behalf. (July Rodríguez) Physician Comments agree (Antonette Kelley MD) July Rodríguez Apr 21, 2016 10:21 Antonette Kelley MD Apr 21, 2016 17:25
[2016-04-21 12:00] VITALS: BP 143/75; PULSE 55; RESP 17; TEMP 98; O2SAT 96
[2016-04-21] MEDS: VANCOMYCIN 1,000 MG/NS 250 ML IV SCH ×2 (12:54)
[2016-04-21] MEDS: clonazePAM 0.5 MG TAB PO SCH (14:00)
[2016-04-21 16:00] VITALS: BP 137/83; PULSE 53; RESP 16; TEMP 97.6; O2SAT 95
[2016-04-21] MEDS: LORazepam 1 MG TAB PO PRN (19:12)
[2016-04-21 20:00] VITALS: BP 149/61; PULSE 53; PULSE 58; RESP 18; TEMP 97.6; O2SAT 95
[2016-04-21] MEDS: traZODone HCL 100 MG TAB PO SCH (21:21)
[2016-04-21] MEDS ORDERED: HALOPERIDOL 2 MG TAB PO ONE (21:30)
[2016-04-21] MEDS ORDERED: HALOPERIDOL LACTATE 5 MG/ML AMP IV PRN (21:30)
[2016-04-22] VITALS: BP 127/61; PULSE 60; RESP 18; TEMP 97.6; O2SAT 95
[2016-04-22] MEDS: LACTATED RINGER'S 1000 ML IV SCH (02:15)
[2016-04-22 03:33] VITALS: BP 137/61; PULSE 72; RESP 18; TEMP 97.6; O2SAT 96
[2016-04-22] MEDS: PIPERACIL-TAZO 3.375 GM PREMIX 50 ML IV SCH ×4 (03:43→20:34)
[2016-04-22] MEDS: fentaNYL 25 MCG/HR PATCH T-DERMAL SCH (05:17)
[2016-04-22] MEDS: INSULIN ASPART SUPPLEMENTAL SCALE SQ SCH ×4 (05:17→20:25)
[2016-04-22] MEDS ORDERED: PHARMACY ORDERED LAB XX ONE (05:45)
[2016-04-22] MEDS: VANCOMYCIN 1,000 MG/NS 250 ML IV SCH ×4 (05:57→23:38)
[2016-04-22] MEDS: SUCRALFATE 1 GM/10 ML CUP PO SCH ×4 (05:57→20:23)
[2016-04-22] MEDS: PHENYTOIN SUSP 100 MG/4 ML CUP PO SCH ×3 (05:58→20:25)
[2016-04-22 06:13] LABS: BICARBONATE 26.9 MEQ/L (21.0-32.0); POTASSIUM 4.1 MEQ/L (3.5-5.1)
[2016-04-22 08:00] VITALS: BP 127/65; PULSE 55; RESP 17; TEMP 97.6; O2SAT 95
[2016-04-22] MEDS: risperiDONE 0.25 MG TAB PO SCH ×2 (08:49→20:24)
[2016-04-22] MEDS: GABAPENTIN 300 MG CAP PO SCH ×2 (08:49→20:24)
[2016-04-22] MEDS: PANTOPRAZOLE SODIUM 40 MG VIAL IV SCH (08:49)
[2016-04-22] MEDS: POLYSACCHARIDE IRON COMPLEX 150 MG CAP PO SCH (08:49)
[2016-04-22] MEDS: METHYLNALTREXONE BROMIDE 12 MG/0.6 ML VIAL SQ SCH (08:49)
[2016-04-22] MEDS: DOCUSATE SODIUM 100 MG CAP PO SCH ×2 (08:50→20:23)
[2016-04-22] MEDS: ESCITALOPRAM OXALATE 20 MG TAB PO SCH (08:50)
[2016-04-22] MEDS: guaiFENesin E.R. 600 MG TAB PO SCH ×2 (08:50→20:25)
[2016-04-22] MEDS: METOPROLOL TARTRATE 25 MG TAB PO SCH ×2 (08:50→20:25)
[2016-04-22] MEDS: clonazePAM 1 MG TAB PO SCH ×2 (08:50→20:23)
[2016-04-22] MEDS: LISINOPRIL 5 MG TAB PO SCH (08:50)
[2016-04-22] MEDS: SODIUM CHLORIDE 0.9% FLUSH 5 ML FLUSH FLUSH SCH ×2 (08:50→20:23)
[2016-04-22] MEDS: DIVALPROEX SODIUM SPRINKLES 125 MG CAP PO SCH (08:50)
--- NOTE | 2016-04-22 09:56 | HHI.PR ---
Subjective Remarks Pleasantly confused, less restless during the daytime Sundowners in late p.m. to the point of restraints back on Poor historian No chest pain Shortness of breath Stools normal consistency, monitor bowels Appetite fair total feed (Isabel Guardado) Objective Objective Results - Vital Signs Date Time Temp Pulse Resp B/P Pulse Ox O2 Delivery O2 Flow Rate FiO2 04/22/16 08:00 97.6 55 17 127/65 95 04/22/16 03:33 97.6 72 18 137/61 96 04/22/16 00:00 97.6 60 18 127/61 95 04/21/16 20:00 58 04/21/16 20:00 97.6 53 18 149/61 95 04/21/16 16:00 97.6 53 16 137/83 95 04/21/16 12:00 98.0 55 17 143/75 96 I/O 04/21/16 04/21/16 04/21/16 04/22/16 04/22/16 04/22/16 07:00 15:00 23:00 07:00 15:00 23:00 Intake Total 60 ml 572 ml 1369 ml 440 ml 120 ml Output Total 1250 ml 500 ml 250 ml 250 ml Balance -1190 ml 72 ml 1119 ml 190 ml 120 ml Intake Oral 60 ml 100 ml 240 ml 120 ml 120 ml IV Total 472 ml 1129 ml 320 ml Output Urine Total 1250 ml 500 ml 250 ml 250 ml # Bowel Movements 0 1 1 0 (Isabel Guardado) Result Diagram: 04/19/16 0415 04/22/16 0525 Other Results Last Impressions Abdomen/Pelvis CT 04/16/16 0200 Signed Impressions: Service Date/Time: Saturday, April 16, 2016 03:14 - CONCLUSION: 1. Large hiatal hernia. 2. Fecal impaction in the rectum. 3. No perceptible mass lesion. 4. Small left pleural effusion. 5. Chronic, benign-appearing bilateral renal cysts. Mazin Arroyo MD Chest X-Ray 04/16/16 0000 Signed Impressions: Service Date/Time: Saturday, April 16, 2016 00:13 - CONCLUSION: Patchy mild airspace disease on the left. Mazin Arroyo MD Medications and IVs Active Medications Haloperidol (Haldol) 2 mg NOW ONCE PO; Start 04/21/16 at 21:30; Stop 04/21/16 at 21:31; Status DC Haloperidol Lactate (Haldol Inj) 2 mg NOW PRN IV Last administered on 21:46; Admin Dose 2 MG; Start 04/21/16 at 21:30; Stop 04/21/16 at 23:00; Status DC Miscellaneous Information SPECIFIC LAB TO BE SPENCER... ONCE ONCE XX; Start at 00:45; Stop 04/23/16 at 00:46; Status Cancel Miscellaneous Information SPECIFIC LAB TO BE DRAWN:VANCOMYCIN TROUGH DATE TO... ONCE ONCE XX Last administered on 04/22/16 05:30; Admin Dose 1; Start at 05:45; Stop 04/22/16 at 05:46; Status DC (Isabel Guardado) ROS General: Weakness (generalized), Other (10 point ROS done. Positives noted generalized weakness, appetite failure, sundowners increased in the p.m. to the point of needing restraints, OTHER systems negative) Neuro/MS: Confusion, Other (sundowners late p.m., extreme restlessness and getting out of bed) (Isabel Guardado) Physical Exam Physical Exam PHYSICAL EXAMINATION GENERAL: This is a thin, female who appears to be in no acute distress at this time. She is drowsy but responds to verbal stimuli, . HEAD: Normocephalic without any lesion or mass noted. Facial features appear symmetric. OROPHARYNGEAL: Oropharynx without erythema or edema. NECK: Supple. No nuchal rigidity or lymphadenopathy. Trachea midline without deviation. CARDIAC: Regular rhythm, regular rate, S1 and S2 are heard. Possible Murmur soft, rate 2/6; no gallops or rubs. LUNGS: Low volumes Clear to auscultation bilaterally. nO wheeze, few rhonchi or no rale. No use of accessory muscles on inspiration or expiration. ABDOMEN: Soft, nontender, no organomegaly or masses. Bowel sounds are heard in all four quadrants. No rebound. No guarding. EXTREMITIES: No edema. Pulses equal bilateral. No cyanosis. NEUROLOGICAL: Patient mood and affect restful now, . SKIN:Warm and moist, dry Objective Remarks Sleeping now nonverbal (Isabel Guardado) A/P Assessment and Plan 1. Gastritis. Esophalgitis 2. Obstipation 3. Hematemesis in nursing facility. 4. Altered mental status metabolic encephalopathy/dementia., 5. Schizoaffective disorder with depression and anxiety., Poor historian 6. Hypertension 7. Diabetes 8. History of anemia. 9. CAD history with a stent and heart surgery history in the past. 10. History of back surgery. 11. As per records history of DVT. 12. Stage IV decubitus ulcer 13. Bradycardia, heart rate 50 on 214, 53 today. Lopressor dose decreased yesterday. We'll monitor any further needs 14. Hiatal hernia PLAN Medical management,No acute nausea vomiting or diarrhea IV hydration continues, patient now on by mouth Pepcid and IV Protonix Labs reviewed, Vital signs reviewed, afebrile, heart rate respirations and blood pressure stable H&H. Stable low potassium improved after extra dose given, now 4.1. Continue to monitor Empiric antibiotics continued Blood cultures negative, negative for flu A Disimpaction done in the ER, now moving his stools as per patient RN, stools now normal consistency, 2 yesterday Appreciate GI consult. EGD shows gastritis, hiatal hernia, no acute bleed, abdomen soft, We will check C. difficile/pending if patient has any more diarrhea. No further diarrhea Monitor sugar with sliding scale insulin coverage, treatment for hypo-and hyperglycemia as warranted Outpatient meds reconciled Appreciated wound care input Start on regular diet, fair appetite, total feed, but taking small amounts Physical therapy, eval for needs strengthening Restraints discontinued yesterday until 10 PM last night Spoke to nurse. Patient remained fairly calm during the daytime, and staff attempted to light and the room and leave TVL last p.m. patient had to be placed back left wrist restraints approximately 10 PM. Restless with delirium, climbing out of the bed. We'll consult psychiatry for their expert opinion and medical management so patient is safe. DNR. Decreased Lopressor to 25mg. BID Discharge planning SNF when she is medically stable and psychologically stable without restraints D/W Alex Franz MD D/W nurse, Discharge Planning SNF , discharge planning Discussed With: Nurse, Other (Dr. Franz patient seen on his behalf) (Isabel Guardado) Assessment and Plan Patient seen and examined as above [id number] time spent with patient Labs reviewed Medications reviewed Plan of care discussed with FOOD PHOTOGRAPHER Discussed with RN (Alex Franz MD) Isabel Guardado Apr 22, 2016 09:56 Alex Franz MD Apr 22, 2016 13:21
[2016-04-22 12:00] VITALS: BP 132/60; PULSE 50; RESP 15; TEMP 97.4; O2SAT 95
[2016-04-22] MEDS: clonazePAM 0.5 MG TAB PO SCH (13:06)
--- NOTE | 2016-04-22 15:30 | PD.CONS ---
Provisional Diagnosis Admission Date Apr 16, 2016 at 04:35 [place] I. Dementia with behavioral disturbances, bipolar disorder [place] II. Deferred History of Present Illness Service Psychiatry Consult Requested By Primary Care Physician Unknown HPI The patient is an 80-year-old woman, domicile in a halfway, with psychiatric history of bipolar disorder, dementia with behavioral disturbances, previous psychiatric hospitalizations, aggressive behavior, known by this service, she is on trazodone 100, clonazepam 1 mg twice a day, Depakote 250 minute 1 twice a day, Risperdal 0.75 mg twice a day, benztropine 1 mg twice a day escitalopram 20 mg daily, medical history of gastritis, HTN, CAD, hiatal hernia, hospitalized due to coffee-ground emesis, abdominal pain, anemia. Consulted to psychiatry due to aggressive behavior and agitation in the medical floor. Patient was seen for psychiatric evaluation, she was unable to be participating in the psychiatric assessment at this moment because she was sedated with Haldol due to agitation. As per nurses, patient was ready to be discharged, but discharge had to be delayed because patient became agitated. Patient was medicated and restraint. Review of Systems ROS Limitations: Uncooperative Past Family Social History Coded Allergies: Glipizide (Verified Allergy, Severe, VOMITING, 04/16/16) Lansoprazole (Verified Allergy, Severe, VOMITING, 04/16/16) Percocet (Verified Allergy, Severe, VOMITING, 04/16/16) PERCOCET Pravastatin (Verified Allergy, Severe, VOMITING, 04/16/16) PT HAS THIS LISTED, BUT WAS PRESCRIBED BY HER DRDavid IN OCTOBER -NOT AWARE OF ANY PROBLEM NOW WITH THIS MED Propoxyphene (Verified Allergy, Severe, VOMITING, 04/16/16) DARVOCET Abilify (Verified Adverse Reaction, Severe, 04/16/16) Reported Medications Acetaminophen (Tylenol)325 Mg Mtz644 Mg PO Q6H PRN (PAIN SCALE 1 TO 10) Ref 0 04/16/16 Trazodone HCl 100 Mg Tab1 Cap PO HS 04/16/16 Benzonatate (Tessalon Perles)100 Mg Ehi964 Mg PO TID PRN (COUGH) Ref 0 04/16/16 Risperidone 0.25 Mg Tab0.75 Mg PO BID #30 TAB Ref 0 04/16/16 Polysaccharide Iron Complex (Poly-Iron 150)150 Mg Ybo049 Mg PO DAILY #30 CAP Ref 0 04/16/16 Phenytoin Liq 125 Mg/5 Ml Oan796 Mg PO HS #237 ML Ref 0 04/16/16 Phenytoin Liq 125 Mg/5 Ml Nem005 Mg PO Q12HR #237 ML Ref 0 04/16/16 Insulin Human Regular Inj (Novolin R Inj)1,000 Unit/10 Ml Vial2-18 Units SQ ACHS #10 ML Ref 0 Max dose at bedtime:( )units; sugars less than 70,(0) units; sugars 150-199,(2)unit; sugars 200-249,(4)units; sugars 250-299,(7) units; sugars 300-349,(10)units; sugars greater than 349,(12)units 04/16/16 Mineral Oil Enema 1 Enem1 Applic RECTAL PRN (CONSTIPATION) 04/16/16 Magnesium Hydroxide Liq (Milk of Magnesia Liq)400 Mg/5 Ml Susp15 Ml PO DAILY PRN (CONSTIPATION) #1 BOTTLE Ref 0 04/16/16 Metoprolol Tartrate 50 Mg Tab50 Mg PO DAILY #30 TAB Ref 0 04/16/16 Lorazepam 1 Mg Tab1 Mg PO Q12HR PRN (ANXIETY) Ref 0 04/16/16 Lisinopril 2.5 Mg Tab2.5 Mg PO DAILY #30 TAB Ref 0 04/16/16 Escitalopram (Lexapro)20 Mg Tab20 Mg PO DAILY #30 TAB Ref 0 04/16/16 Insulin Glargine Inj (Lantus Inj)100 Unit/Ml Inj5 Units SQ BID 04/16/16 Lactulose Liq 10 Gm/15 Ml Soln30 Ml PO DAILY PRN (CONSTIPATION) Ref 0 04/16/16 Clonazepam (Klonopin)1 Mg Tab1 Mg PO BID #60 TAB Ref 0 04/16/16 Clonazepam (Klonopin)0.5 Mg Tab0.5 Mg PO DAILY #60 TAB Ref 0 04/16/16 Guaifenesin 400 Mg Tab1,200 Mg PO BID 04/16/16 Gabapentin 300 Mg Dev370 Mg PO BID #60 CAP Ref 0 04/16/16 Fentanyl Patch 72 HR 25 Mcg/Hr Patch25 Mcg T-DERMAL Q72H #10 PATCH Ref 0 04/16/16 Bisacodyl Supp (Dulcolax Supp)10 Mg Supp10 Mg RECTAL DAILY PRN (CONSTIPATION) # 12 SUPP Ref 0 04/16/16 Hydromorphone (Dilaudid)4 Mg Tab4 Mg PO Q4H PRN (Pain Management) Ref 0 04/16/16 Divalproex Sprinkles (Depakote Sprinkles)125 mg Nam216 Mg PO DAILY #60 CAP Ref 0 04/16/16 Docusate Sodium (Colace)100 Mg Owk289 Mg PO BID #60 CAP Ref 0 04/16/16 Benztropine 1 Mg Tab1 Mg PO BID PRN (DYSTONIA) #60 TAB Ref 0 04/16/16 Baclofen 10 Mg Tab10 Mg PO BID PRN (PAIN SCALE 1 TO 10) Ref 0 04/16/16 Albuterol Neb 2.5 Mg/3 Ml Neb2.5 Mg NEB Q4HR NEB PRN (SHORTNESS OF BREATH) #60 NEBULE Ref 0 04/16/16 Current Medications Medications (Trade) Dose Ordered Sig/Luna Route Start Time Stop Time Status Last Admin (NS 1000 ml Inj) 1,000 ml @ 40 mls/hr Q24H IV 04/16/16 05:18 04/21/16 21:29 (NS Flush) 2 ml UNSCH PRN FLUSH 04/16/16 05:30 (NS Flush) 2 ml BID FLUSH 04/16/16 09:00 04/22/16 08:50 (Tylenol) 650 mg Q4H PRN PO 04/16/16 05:30 (Zofran Inj) 4 mg Q6H PRN IVP 04/16/16 05:30 04/16/16 19:58 (Dulcolax Supp) 10 mg DAILY PRN [place] 04/16/16 05:30 (Colace) 100 mg Q12H PO 04/16/16 09:00 04/22/16 08:50 Naloxone HCl 0.4 mg 0.4 mg UNSCH PRN IV 04/16/16 05:30 (Vancomycin Consult Pharmacy) 0 ml @ 0 mls/hr UNSCH XX 04/16/16 05:30 (Relistor Inj) 12 mg DAILY SQ 04/16/16 09:00 04/22/16 08:49 (Lioresal) 10 mg BID PRN PO 04/16/16 05:30 (Tessalon) 100 mg TID PRN PO 04/16/16 05:30 (Cogentin) 1 mg BID PRN PO 04/16/16 05:30 (Dulcolax Supp) 10 mg DAILY PRN RECTAL 04/16/16 05:30 (KlonoPIN) 1 mg BID PO 04/16/16 09:00 04/22/16 08:50 (Depakote Sprinkles) 250 mg DAILY PO 04/16/16 09:00 04/22/16 08:50 (Lexapro) 20 mg DAILY PO 04/16/16 09:00 04/22/16 08:50 (Duragesic 25 Mcg Patch.72 Hr) 1 patch Q72H T-DERMAL 04/16/16 06:00 04/22/16 05:17 (Neurontin) 300 mg BID PO 04/16/16 09:00 04/22/16 08:49 (Lactulose Liq) 30 ml DAILY PRN PO 04/16/16 05:30 (Prinivil) 2.5 mg DAILY PO 04/16/16 09:00 04/22/16 08:50 (Ativan) 1 mg Q12HR PRN PO 04/16/16 05:30 04/21/16 19:12 (Milk Of Magnesia Liq) 15 ml DAILY PRN PO 04/16/16 05:30 (Dilantin Liq) 300 mg HS PO 04/16/16 21:00 04/21/16 21:21 (Nu-Iron) 150 mg DAILY PO 04/16/16 09:00 04/22/16 08:49 (risperDAL) 0.75 mg BID PO 04/16/16 09:00 04/22/16 08:49 (Mucinex Er) 1,200 mg BID PO 04/16/16 09:00 04/22/16 08:50 (Desyrel) 100 mg HS PO 04/16/16 21:00 04/21/16 21:21 (D50w (Vial) Inj) 25 ml UNSCH PRN IV PUSH 04/16/16 05:30 Glucagon 1 mg 1 mg UNSCH PRN OTHER 04/16/16 05:30 (Zosyn 3.375 Gm Premix) 50 ml @ 100 mls/hr Q6H IV 04/16/16 09:00 04/22/16 14:25 (Dilantin Liq) 150 mg DAILY@06,12 PO 04/16/16 06:00 04/22/16 11:22 (KlonoPIN) 0.5 mg DAILY@14 PO 04/16/16 14:00 04/20/16 15:38 (Dilaudid) 2 mg Q4H PRN PO 04/16/16 20:03 04/16/16 20:20 Pantoprazole Sodium 40 mg 40 mg DAILY IV 04/18/16 09:00 04/22/16 08:49 (Lr 1000 ml Inj) 1,000 ml @ 30 mls/hr Q24H IV 04/18/16 02:15 04/18/16 07:45 (Carafate Liq) 1 gm ACHS PO 04/20/16 11:00 04/22/16 11:21 Metoprolol Tartrate 25 mg 25 mg BID PO 04/20/16 21:00 04/22/16 08:50 (Vancomycin Inj/ NS 250 ml Inj) 250 ml @ 250 mls/hr Q18H IV 04/20/16 18:00 04/22/16 05:57 Social History Patient lives in a halfway, she doesn't drink alcohol or use drugs Physical Exam Sedated Vital Signs Vital Signs Date Time Temp Pulse Resp B/P Pulse Ox O2 Delivery O2 Flow Rate FiO2 04/22/16 12:00 97.4 50 15 132/60 95 I/O 04/21/16 04/21/16 04/22/16 08:00 16:00 00:00 Intake Total 532 ml 1040 ml 429 ml Output Total 1250 ml 500 ml 250 ml Balance -718 ml 540 ml 179 ml Mental Status Examination Unable to be performed due to level of sedation Assessment & Plan Problem List: (1) Dementia Assessment & Plan: Patient unable to participate in the psychiatric assessment due to the level of sedation. Agree with continuation of current psychotropic regimen Since Depakote levels are suboptimal, would suggest to increase Depakote to 500 mg twice a day for better behavioral control Please contact me directly, for additional questions We'll follow-up. ICD Code: F03.90 Assessment & Plan Estimated LOS: days Problem Qualifiers (1) Dementia: Nicho Buenrostro MD Apr 22, 2016 15:30
[2016-04-22 16:00] VITALS: BP 153/69; PULSE 54; RESP 17; TEMP 97.2; O2SAT 97
[2016-04-22] MEDS: LORazepam 1 MG TAB PO PRN (17:51)
[2016-04-22] MEDS ORDERED: HALOPERIDOL LACTATE 5 MG/ML AMP IM ONE (18:15)
[2016-04-22 20:00] VITALS: BP 132/62; PULSE 56; RESP 18; TEMP 97.6; O2SAT 97
[2016-04-22] MEDS: traZODone HCL 100 MG TAB PO SCH (20:23)
[2016-04-22] MEDS: SODIUM CHLOR 0.9% 1000 ML INJ 1,000 ML IV SCH (23:39)
[2016-04-23] VITALS: BP 139/66; PULSE 50; RESP 18; TEMP 97; O2SAT 97
[2016-04-23] MEDS ORDERED: PHARMACY ORDERED LAB XX ONE (00:45)
[2016-04-23] MEDS: LACTATED RINGER'S 1000 ML IV SCH (02:15)
[2016-04-23] MEDS: PIPERACIL-TAZO 3.375 GM PREMIX 50 ML IV SCH ×3 (02:50→14:34)
[2016-04-23 04:00] VITALS: BP 160/81; PULSE 53; RESP 18; TEMP 96.7; O2SAT 95
[2016-04-23] MEDS: PHENYTOIN SUSP 100 MG/4 ML CUP PO SCH ×2 (05:57→11:03)
[2016-04-23] MEDS: SUCRALFATE 1 GM/10 ML CUP PO SCH ×3 (05:58→16:08)
[2016-04-23] MEDS: INSULIN ASPART SUPPLEMENTAL SCALE SQ SCH ×3 (06:00→16:08)
[2016-04-23 08:09] VITALS: BP 182/80
[2016-04-23] MEDS: POLYSACCHARIDE IRON COMPLEX 150 MG CAP PO SCH (08:30)
[2016-04-23] MEDS: guaiFENesin E.R. 600 MG TAB PO SCH (08:31)
[2016-04-23] MEDS: METHYLNALTREXONE BROMIDE 12 MG/0.6 ML VIAL SQ SCH (08:31)
[2016-04-23] MEDS: DOCUSATE SODIUM 100 MG CAP PO SCH (08:31)
[2016-04-23] MEDS: LISINOPRIL 5 MG TAB PO SCH (08:31)
[2016-04-23] MEDS: METOPROLOL TARTRATE 25 MG TAB PO SCH (08:31)
[2016-04-23] MEDS: clonazePAM 1 MG TAB PO SCH (08:31)
[2016-04-23] MEDS: risperiDONE 0.25 MG TAB PO SCH (08:31)
[2016-04-23] MEDS: SODIUM CHLORIDE 0.9% FLUSH 5 ML FLUSH FLUSH SCH (08:32)
[2016-04-23] MEDS: ESCITALOPRAM OXALATE 20 MG TAB PO SCH (08:32)
[2016-04-23] MEDS: GABAPENTIN 300 MG CAP PO SCH (08:32)
[2016-04-23] MEDS: PANTOPRAZOLE SODIUM 40 MG VIAL IV SCH (08:32)
[2016-04-23 08:33] VITALS: BP 189/81; PULSE 53; RESP 16; TEMP 96.5; O2SAT 100
[2016-04-23] MEDS ORDERED: DIVALPROEX SODIUM SPRINKLES 125 MG CAP PO SCH (09:00)
[2016-04-23 12:00] VITALS: BP 122/59; PULSE 50; RESP 16; TEMP 96.8; O2SAT 100
--- NOTE | 2016-04-23 13:23 | HHI.PR ---
Subjective Remarks awake, oriented to self and place calm at this time difficult to obtain ROS no fever (Nena Gonzalez) Objective Objective Results - Vital Signs Date Time Temp Pulse Resp B/P Pulse Ox O2 Delivery O2 Flow Rate FiO2 04/23/16 12:00 96.8 50 16 122/59 100 04/23/16 08:33 96.5 53 16 189/81 100 04/23/16 08:09 182/80 04/23/16 04:00 96.7 53 18 160/81 95 04/23/16 00:00 97.0 50 18 139/66 97 04/22/16 20:00 97.6 56 18 132/62 97 04/22/16 16:00 97.2 54 17 153/69 97 I/O 04/22/16 04/22/16 04/22/16 04/23/16 04/23/16 04/23/16 07:00 15:00 23:00 07:00 15:00 23:00 Intake Total 440 ml 1128 ml 546 ml 760 ml Output Total 250 ml 1200 ml 500 ml 1000 ml Balance 190 ml -72 ml 46 ml -240 ml Intake Oral 120 ml 600 ml 240 ml 120 ml IV Total 320 ml 528 ml 306 ml 640 ml Output Urine Total 250 ml 1200 ml 500 ml 1000 ml # Bowel Movements 0 0 (Nena Gonzalez) Result Diagram: 04/19/16 0415 04/22/16 0525 ROS General: Other (unable to obtain ROS ) (Nena Gonzalez) Physical Exam Physical Exam PHYSICAL EXAMINATION GENERAL: This is a thin, female who appears to be in no acute distress at this time. Awake, calm HEAD: Normocephalic without any lesion or mass noted. Facial features appear symmetric. OROPHARYNGEAL: Oropharynx without erythema or edema. NECK: Supple. No nuchal rigidity or lymphadenopathy. Trachea midline without deviation. CARDIAC: Regular rhythm, regular rate, S1 and S2 are heard. Possible Murmur soft, rate 2/6; no gallops or rubs. LUNGS: Clear to auscultation bilaterally. No wheeze, few rhonchi or no rale. No use of accessory muscles on inspiration or expiration. ABDOMEN: Soft, nontender, no organomegaly or masses. Bowel sounds are heard in all four quadrants. No rebound. No guarding. EXTREMITIES: No edema. Pulses equal bilateral. No cyanosis. NEUROLOGICAL: Awake, oriented x 2. No focal deficits. SKIN:Warm and moist, dry (Nena Gonzalez) Urinary Catheter: Yes Assessment to: Remove (Nena Gonzalez) Vascular Central Line Catheter: No (Nena Gonzalez) A/P Assessment and Plan 1. Gastritis. Esophagitis 2. Obstipation 3. Hematemesis in nursing facility. 4. Altered mental status metabolic encephalopathy/dementia., 5. Schizoaffective disorder with depression and anxiety., Poor historian 6. Hypertension 7. Diabetes 8. History of anemia. 9. CAD history with a stent and heart surgery history in the past. 10. History of back surgery. 11. History of DVT. 12. Stage IV decubitus ulcer 13. Bradycardia, 14. Hiatal hernia PLAN Continue with PPI On abx, cultures negative Appreciate GI input Anemia, acute blood loss. S/P 2 units PRBC. HH stable S/P EGD --gastritis, hiatal hernia, no acute bleed, abdomen soft Having BMs now Monitor sugar with sliding scale insulin coverage, treatment for hypo-and hyperglycemia as warranted Bradycardia, dec. Lopressor Appreciate psych input, evaluated for inc. agitation Depakote increased pt. better will have RN DC restraints Overall improved, SNF can take her back although restraints were used. Per cm, pt is a one to one at facility Discharge to SNF F/U PCP, GI Diet -heart healthy Activity-as tolerated. D/W Dr. Franz D/W nurse D/W CM This patient was seen by myself and Dr. Franz, this note is written on his behalf. (Nena Gonzalez) Assessment and Plan Patient seen and examined as above [id number] time spent with patient Labs reviewed Medications reviewed Plan of care discussed with WATCH DIAL MAKER (Alex Franz MD) Nena Gonzalez Apr 23, 2016 13:23 Alex Franz MD Apr 23, 2016 16:54
[2016-04-23] MEDS: clonazePAM 0.5 MG TAB PO SCH (13:55)
[2016-04-23] MEDS ORDERED: SUCR1S PO (14:24)
--- NOTE | 2016-04-23 14:25 | HHI.DCPOC ---
Discharge Care Plan Diagnosis: (1) Dementia (2) GI bleed Your Health Problems Are: Appetite Changes Goals to Promote Your Health * To prevent worsening of your condition and complications * To maintain your health at the optimal level Directions to Meet Your Goals Take your medications as prescribed Follow your dietary instruction Follow activity as directed Keep your appointments as scheduled Take your immunizations and boosters as scheduled If your symptoms worsen call your PCP, if no PCP go to Urgent Care Center or Emergency Room Smoking is Dangerous to Your Health. Avoid second hand smoke Call the 24-hour hour crisis hotline for domestic abuse at Nena Gonzalez Apr 23, 2016 14:25
[2016-04-23] MEDS ORDERED: METO25TA3 PO (14:30)
[2016-04-23] MEDS ORDERED: DILA4TAB2 PO (15:03)
[2016-04-23] MEDS ORDERED: CLON1 PO (15:03)
[2016-04-23] MEDS ORDERED: CLON.5 PO (15:03)
[2016-04-23] MEDS ORDERED: FENT25DI T-DERMAL (15:03)
[2016-04-23] MEDS ORDERED: DIVA125C PO (15:05)
--- NOTE | 2016-04-23 19:15 | HHI.DS ---
Discharge Summary Admission Date Apr 16, 2016 at 04:35 Discharge Date: Apr 23, 2016 Admitting Diagnosis Sepsis, Obstipation, GI BLeed (1) Sepsis (2) Fecal impaction (3) Dementia (4) GI bleed (5) Hypertension, benign (6) CAD (coronary artery disease) (7) Diabetes mellitus type 2, controlled (8) Anemia due to gastrointestinal blood loss (9) Psychosis (10) Dementia arising in the senium and presenium CBC/BMP: 04/19/16 0415 04/22/16 0525 Significant Findings Laboratory Tests Test 04/22/16 05:25 Estimat Glomerular Filtration 68 ML/MIN (>89) Rate Random Glucose 159 MG/DL (74-106) Calcium Level 8.0 MG/DL (8.5-10.1) Vancomycin Level Trough 16.0 MCG/ML (5.0-10.0) Imaging Last Impressions Abdomen/Pelvis CT 04/16/16 0200 Signed Impressions: Service Date/Time: Saturday, April 16, 2016 03:14 - CONCLUSION: 1. Large hiatal hernia. 2. Fecal impaction in the rectum. 3. No perceptible mass lesion. 4. Small left pleural effusion. 5. Chronic, benign-appearing bilateral renal cysts. Mazin Arroyo MD Chest X-Ray 04/16/16 0000 Signed Impressions: Service Date/Time: Saturday, April 16, 2016 00:13 - CONCLUSION: Patchy mild airspace disease on the left. Mazin Arroyo MD Hospital Course The patient is an 80-year female with a significant past medical history of dementia. Unable to get any good information from the patient. The patient was alert and oriented times one.. The patient was brought from [facility] for altered mental status with coffee-ground emesis. As per old records, the patient has dementia and has a psychiatric history as well. She denied any headache. She had only nausea. Denied any vomiting. On questioning, she says that she had slight abdominal discomfort. There are no other associated symptoms. There are no other symptoms. Discussed with RN at the bedside in the ER as well. The patient was disimpacted in the ER. Chest x-ray Shows the patient has patchy mild airspace disease on the left. Abdominal pelvic CT showed slight hiatal hernia. Fecal impaction in the rectum. No perceptible mass lesion. Small left pleural effusion. Chronic benign-appearing bilateral renal cysts. Labs were done which shows WBC 13.7, hemoglobin 10.7, hematocrit 30.1, platelet count is 256. BUN 37, GFR 69, troponin less than 0.02, albumin 2.7, lipase 30, lactic acid 0.9, PT-INR and PTT within normal limits. Phenytoin level 4.9, valproic acid 14. The patient's urine showed urine mucus few, culture not indicated. Negative influenza type A and B. Negative antigen. Blood culture done. Admitted with 1. High-grade fever on admission with leukocytosis likely sepsis, likely early sepsis 2. Obstipation 3. Hematemesis in nursing facility. 4. Altered mental status metabolic encephalopathy/dementia. 5. Schizoaffective disorder with depression and anxiety. 6. Hypertension 7. Diabetes 8. History of anemia. 9. CAD history with a stent and heart surgery history in the past. 10. History of back surgery. 11. History of DVT. During course of hospitalization, the following took place: Admitted to floor, started on IVF Put on PPI Empiric antibiotics given Cultures were followed, remained negative. Was disimpacted in the ED GI consulted. Monitored sugar with sliding scale insulin coverage Continued some of home medication as indicated. Pt. was a DNR, appropriate paperwork was sent from facility. GI evaluated Appreciated GI input Anemia, acute blood loss. S/P 2 units PRBC. HH stable S/P EGD --gastritis, hiatal hernia, no acute bleed, abdomen soft Having BMs now GI symptoms resolved Was noted bradycardic. Lopressor was decreased. Was agitated, required restraints Continued on home meds Psych consulted obtained, Depakote increased pt. better, was more cooperative [place] was DC Diet was advanced and tolerated well No more vomiting VSS CM consult for DC planning Discharged to SNF in stable condition. Instructions given for: F/U PCP, GI Diet -heart healthy Activity-as tolerated. Pt Condition on Discharge: Stable Discharge Disposition: Discharge to SNF Discharge Instructions DIET: Follow Instructions for: Heart Healthy Diet Activities you can perform: Weight Bearing as Lanny Follow up Referrals: Gastroenterology PCP Follow-up New Medications: Divalproex Sprinkles (Depakote Sprinkles) 125 mg Cap 500 MG PO DAILY Agitation #60 Ref 0 CAP Metoprolol Tartrate (Metoprolol Tartrate) 25 Mg Tab 12.5 MG PO BID Blood Pressure Management #60 Ref 0 TAB Sucralfate Liq (Sucralfate Liq) 1 Gm/10 Ml Erika 1 GM PO ACHS GASTRITITI #90 CONTAINER Continued Medications: Acetaminophen (Tylenol) 325 Mg Tab 650 MG PO Q6H PRN PAIN SCALE 1 TO 10 Ref 0 TAB Albuterol Neb (Albuterol Neb) 2.5 Mg/3 Ml Neb 2.5 MG NEB Q4HR NEB PRN SHORTNESS OF BREATH #60 Ref 0 NEBULE Baclofen (Baclofen) 10 Mg Tab 10 MG PO BID PRN PAIN SCALE 1 TO 10 Ref 0 TAB Benzonatate (Tessalon Perles) 100 Mg Cap 100 MG PO TID PRN COUGH Ref 0 CAP Benztropine (Benztropine) 1 Mg Tab 1 MG PO BID PRN DYSTONIA #60 Ref 0 TAB Bisacodyl Supp (Dulcolax Supp) 10 Mg Supp 10 MG RECTAL DAILY PRN CONSTIPATION #12 Ref 0 SUPP Clonazepam (Klonopin) 0.5 Mg Tab 0.5 MG PO DAILY Anxiety #60 Ref 0 TAB (This prescription has been renewed) Clonazepam (Klonopin) 1 Mg Tab 1 MG PO BID Anxiety #60 Ref 0 TAB (This prescription has been renewed) Docusate Sodium (Colace) 100 Mg Cap 100 MG PO BID Constipation #60 Ref 0 CAP Escitalopram (Lexapro) 20 Mg Tab 20 MG PO DAILY Anxiety #30 Ref 0 TAB Fentanyl Patch 72 HR (Fentanyl Patch 72 HR) 25 Mcg/Hr Patch 25 MCG T-DERMAL Q72H Pain Management #10 Ref 0 PATCH (This prescription has been renewed) Gabapentin (Gabapentin) 300 Mg Cap 300 MG PO BID Pain #60 Ref 0 CAP Guaifenesin (Guaifenesin) 400 Mg Tab 1200 MG PO BID Cough Hydromorphone (Dilaudid) 4 Mg Tab 4 MG PO Q4H PRN Pain Management #20 Ref 0 TAB (This prescription has been renewed) Insulin Glargine Inj (Lantus Inj) 100 Unit/Ml Inj 5 UNITS SQ BID Insulin Human Regular Inj (Novolin R Inj) 1,000 Unit/10 Ml Vial 2-18 UNITS SQ ACHS Max dose at bedtime:( )units; sugars less than 70,(0) units; sugars 150-199,(2)unit; sugars 200-249,(4)units; sugars 250-299,(7) units; sugars 300-349,(10)units; sugars greater than 349,(12)units Blood Sugar Management #10 Ref 0 ML Lactulose Liq (Lactulose Liq) 10 Gm/15 Ml Soln 30 ML PO DAILY PRN CONSTIPATION Ref 0 ML Lisinopril (Lisinopril) 2.5 Mg Tab 2.5 MG PO DAILY #30 Ref 0 TAB Magnesium Hydroxide Liq (Milk of Magnesia Liq) 400 Mg/5 Ml Susp 15 ML PO DAILY PRN CONSTIPATION #1 Ref 0 BOTTLE Phenytoin Liq (Phenytoin Liq) 125 Mg/5 Ml Erika 150 MG PO Q12HR Control Seizures #237 Ref 0 ML Phenytoin Liq (Phenytoin Liq) 125 Mg/5 Ml Erika 300 MG PO HS Control Seizures #237 Ref 0 ML Polysaccharide Iron Complex (Poly-Iron 150) 150 Mg Cap 150 MG PO DAILY Nutritional Supplement #30 Ref 0 CAP Risperidone (Risperidone) 0.25 Mg Tab 0.75 MG PO BID BIPOLAR #30 Ref 0 TAB Trazodone HCl (Trazodone HCl) 100 Mg Tab 1 CAP PO HS Insomnia Discontinued Medications: Divalproex Sprinkles (Depakote Sprinkles) 125 mg Cap 250 MG PO DAILY Anxiety #60 Ref 0 CAP Lorazepam (Lorazepam) 1 Mg Tab 1 MG PO Q12HR PRN ANXIETY Ref 0 TAB Metoprolol Tartrate (Metoprolol Tartrate) 50 Mg Tab 50 MG PO DAILY Blood Pressure Management #30 Ref 0 TAB Mineral Oil Enema (Mineral Oil Enema) 1 Enem 1 APPLIC RECTAL PRN CONSTIPATION Nena Gonzalez Apr 23, 2016 19:15
== END 2016-04-23 17:59 | DRG 377 ==
LOC: NEPC 01:44 → NEDA 04:35 → NEDH 08:44 → N07B 20:52
PROVIDERS: ADMIT Specialist; ATTEND Specialist
PROC: 30233N1 Transfusion of Nonautologous Red Blood Cells into Peripheral Vein, Percutaneous Approach (ICD-10-PCS; principal; 2016-04-17)
PROC: 0DB58ZX Excision of Esophagus, Via Natural or Artificial Opening Endoscopic, Diagnostic (ICD-10-PCS; 2016-04-20)
PROC: 0DB68ZX Excision of Stomach, Via Natural or Artificial Opening Endoscopic, Diagnostic (ICD-10-PCS; 2016-04-20)
DX: K92.2 Gastrointestinal hemorrhage, unspecified (principal); G93.41 Metabolic encephalopathy; A41.9 Sepsis, unspecified organism; L89.94 Pressure ulcer of unspecified site, stage 4; D62 Acute posthemorrhagic anemia; F03.91 Unspecified dementia, unspecified severity, with behavioral disturbance; E11.65 Type 2 diabetes mellitus with hyperglycemia; K56.41 Fecal impaction; K20.9 Esophagitis, unspecified; D72.829 Elevated white blood cell count, unspecified; I10 Essential (primary) hypertension; K29.70 Gastritis, unspecified, without bleeding; K44.9 Diaphragmatic hernia without obstruction or gangrene; R00.1 Bradycardia, unspecified; E78.5 Hyperlipidemia, unspecified; M19.90 Unspecified osteoarthritis, unspecified site; Z66 Do not resuscitate; I25.10 Atherosclerotic heart disease of native coronary artery without angina pectoris; Z78.1 Physical restraint status; R06.02 Shortness of breath; F31.9 Bipolar disorder, unspecified; Z86.718 Personal history of other venous thrombosis and embolism; R56.9 Unspecified convulsions; F25.9 Schizoaffective disorder, unspecified; F41.8 Other specified anxiety disorders
CPT/HCPCS: 36430; 51702; 71010; 74177; 76937; 80048; 80053; 80164; 80185; 80202; 81001; 82565; 82948; 83605; 83690; 83735; 84100; 84484; 85014; 85018; 85025; 85027; 85610; 85730; 86850; 86900; 86901; 86920; 87040; 87804; 88305; 88312; 93005; 96361; 96365; 96372; 96375; C9113; J1630; J1815; J1940; J2212; J2405; J2543; J3370; J7030; J7050; J7120; P9016; Q9967

== ENCOUNTER 2016-08-22 23:35 | Emergency (ER) | payer MEDICARE, OTHER ==
[~2016-08-22 23:35] MED LIST changes: +ALBU0.08 NEB; -ALBU25IPRN INH; +BACL10TA PO; +BENZ100 PO; +BENZ1TAB PO; -BISA10R PR; +CLON.5 PO; +CLON1 PO; +COLA100C3 PO; -CYAN1000P IM; -DILA2TAB4 PO; +DILA4TAB2 PO; +DIVA125C PO; -DOCU100T9 PO; +DULC10SU3 RECTAL; -ERGO50000 PO; +FENT25DI T-DERMAL; -GABA300 PO; +GABA300C5 PO; +GUAI400T8 PO; -HALO5 PO; -HALO5P IM; -KCL10 PO; +LACT10SO PO; +LANTUS2P SQ; -LEVA250T PO; +LEXA20TA PO; +LISI2.5T3 PO; -LORA-474 PO; -MAGN400 PO; +METO25TA3 PO; -METO50CR PO; -METR-1 PO/NG; +MILKSUS PO; -NOVOLOGSS SQ; +NOVORP2 SQ; +NU-IRON PO; -PHEN100S PO; +PHEN125S PO; -PROC2.5C PR; -RISP.5 PO; +RISP0.252 PO; +SUCR1S PO; +TRAZ100T5 PO; -TRAZ50TA4 PO; +TYLE325T PO
[2016-08-22 23:40] VITALS: BP 159/72; PULSE 67; RESP 16; TEMP 97.4; O2SAT 100
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
[2016-08-23] MEDS ORDERED: SODIUM CHLORIDE 0.9% FLUSH 10 ML FLUSH IV FLUSH PRN (00:30)
--- NOTE | 2016-08-23 00:56 | RADRPT ---
EXAM DATE/TIME: 08/23/2016 00:29 [place] COMPARISON: CHEST SINGLE AP, April 16, 2016, 0:13. INDICATIONS : Pt having chest pain beginning tonight. MEDICAL HISTORY : Diabetes mellitus type II. Dementia SURGICAL HISTORY : None. ENCOUNTER: Initial ACUITY: 1 day PAIN SCORE: 7/10 LOCATION: Bilateral chest FINDINGS: No infiltrate, effusion or pneumothorax. Heart size stable, upper limits of normal. Tortuous thoracic aorta again noted. CONCLUSION: No evidence of acute cardiopulmonary disease. Mazin Arroyo MD on August 23, 2016 at 0:54 Board Certified Radiologist. This report was verified electronically.
[2016-08-23 01:02] LABS: BLOOD, URINE NEG (NEG); COMMENT (UR) CULT NOT INDICATED; CULTURE IF INDICATED CULT NOT INDICATED; GLUCOSE,URINE NEG (NEG); KETONE, URINE NEG (NEG); NITRITE,URINE NEG (NEG); SQUAMOUS EPITHELIAL CELL URINE <1 /hpf (0-5); URINE COLOR YELLOW (YELLW/STRAW)
[2016-08-23 01:02] LABS: AUTOMATED NEUTROPHIL # 3.7 TH/MM3 (1.8-7.7); BASOPHIL # 0.1 TH/MM3 (0-0.2); BASOPHIL % 1.3 % (0.0-2.0); EOSINOPHIL # 0.1 TH/MM3 (0-0.4); EOSINOPHIL % 2.3 % (0.0-4.0); HEMO FLAGS DIFF FINAL; LYMPH % 26.5 % (9.0-44.0); LYMPHOCYTE # 1.6 TH/MM3 (1.0-4.8); MEAN CELL VOLUME 95.9 FL (80.0-100.0); MEAN CORPUSCULAR HEMOGLOBIN 32.6 PG (27.0-34.0); MONO % 10.2 % (0.0-8.0); NEUT % 59.7 % (16.0-70.0); PLATELET COUNT 175 TH/MM3 (150-450); RED BLOOD COUNT 3.23 MIL/MM3 (4.00-5.30); RED CELL DISTRIBUTION WIDTH 12.6 % (11.6-17.2); WHITE BLOOD COUNT 6.2 TH/MM3 (4.0-11.0)
[2016-08-23 01:23] LABS: BICARBONATE 26.2 MEQ/L (21.0-32.0); POTASSIUM 5.1 MEQ/L (3.5-5.1)
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
[2016-08-23] MEDS ORDERED: HALOPERIDOL LACTATE 5 MG/ML AMP IM ONE (02:45)
[2016-08-23 02:57] VITALS: BP 185/96; PULSE 100; RESP 19; O2SAT 98
[2016-08-23] MEDS ORDERED: LORazepam 2 MG/ML VIAL ONE (03:02)
[2016-08-23] MEDS ORDERED: LORazepam 2 MG/ML VIAL IM ONE ×2 (03:15→08:30)
[2016-08-23 04:18] VITALS: BP 148/73; PULSE 83; RESP 16; O2SAT 100
== END 2016-08-23 08:48 ==
LOC: NEPD 23:35
DX: F03.91 Unspecified dementia, unspecified severity, with behavioral disturbance (principal); F91.1 Conduct disorder, childhood-onset type; G40.909 Epilepsy, unspecified, not intractable, without status epilepticus; F25.9 Schizoaffective disorder, unspecified; M81.0 Age-related osteoporosis without current pathological fracture; K21.9 Gastro-esophageal reflux disease without esophagitis; D64.9 Anemia, unspecified; M19.90 Unspecified osteoarthritis, unspecified site; E78.00 Pure hypercholesterolemia, unspecified
CPT/HCPCS: 71010; 80048; 81001; 85025; 96372; 99284; J1630; J2060